=== PATIENT | male | born 1945 | race Caucasian/White ===

== ENCOUNTER 2016-07-07 15:10 | Inpatient (IN) | payer OTHER ==
[~2016-07-07] VITALS: Ht 177.8 cm; Wt 166.8 kg
[~2016-07-07 15:10] MED LIST: CARDIZEM CD PO; COUMADIN5 MG PO; COUMADIN7.5 MG PO; HUMALOG100 MG/ML SC; KLOR-CON 1010 MEQ PO; LASIX40 MG PO; LEVEMIR FL100 UNIT/M SC; LISINOPRIL10 MG PO; LOPRESSOR25 MG PO; LOPRESSOR50 MG PO; NOVOLOG PE100 UNITS/ SC; NYSTOP100000 MG TOP; SPIRONOLACTONE25 MG PO; WARFARIN SODIUM4 MG PO; ZESTRIL2.5 MG PO
--- NOTE | 2016-07-07 16:21 | DIAGNOSTIC IMAGING REPORT ---
PROCEDURE: CT HEAD WITHOUT CONTRAST INDICATION: FALL, HEAD INJURY, WARFARIN TECHNIQUE: Axial CT images were acquired through the head. Coronal and sagittal reformations were created. COMPARISON: None. FINDINGS: No intracranial hemorrhage or extraaxial fluid collections. Ventricles are normal in size, shape and position. There is no mass, mass effect or midline shift. The garcia-white matter differentiation is normal. There is no edema. The calvarium is intact. There is mucoperiosteal thickening in both maxillary sinuses. The extracranial soft tissues and orbits are normal. IMPRESSION: 1. No CT evidence of acute intracranial process. 2. Findings discussed with Isai at 04:[address] scans at this facility use dose modulation, iterative reconstruction, and/or weight-based dosing when appropriate to reduce radiation dose to as low as reasonably achievable.
--- NOTE | 2016-07-07 17:29 | ED CLINICAL REPORT ---
Clinical Report - Physicians/Mid Levels [facility] [address] [place] [address] 07/07/2016 15:11 Patient: GALINA MORRISON Time Seen: 1500; initial patient contact. Arrived- By private vehicle. Historian- patient. HISTORY OF PRESENT ILLNESS Location of injuries- head. Chief Complaint: FALL. The injury occurred today. Occurred at home. ( states he is taking a "water pill" and felt a little light headed). Fell. The patient complains of mild pain. No neck pain, loss of consciousness or seizure. Not dazed. (reports "bumping" back of head head on the ground). REVIEW OF SYSTEMS No numbness, chest pain, difficulty breathing, weakness or headache. No nausea, laceration, vomiting or urinary problems. All systems otherwise negative, except as recorded above. PAST HISTORY See nurses notes. Tetanus immunization status is up-to-date. Medications: Coumadin Oral 7.5 mg, daily (5mg on and Sundays). Docusate Sodium Oral (Capsule 250 mg) 1 capsule, bid. HumaLOG Subcutaneous (ss before meals and at HS). Human insulin (25 units BID). Lasix Oral (Tablet 40 mg), 2x a day. Lisinopril Oral 2.5 mg, daily. Metoprolol Tartrate Oral 150 mg, daily. Nystatin External (Powder 099057 unit/gm), q 8 hours. Potassium Chloride Oral (unknown dose). Senna Oral. Allergies: No Known Drug Allergy. ADDITIONAL NOTES The nursing notes have been reviewed. PHYSICAL EXAM Vital Signs: 07/07/2016 15:14 BP: 120/56. HR: 58. RR: 16. O2 saturation: 98%. Temp: 98 F. Pain level now: 2/10. Blood pressure normal. Oxygen saturation normal. Appearance: Alert. Oriented X3. No acute distress. Head: Head non-tender. No swelling of head. No Dunbar's sign or raccoon eyes. Eyes: Pupils equal, round and reactive to light. Pupillary exam: Right pupil round and reactive to light directly and consensually. Left pupil: 3mm, round and reactive to light directly and consensually and with accommodation. EOM intact. ENT: No dental injury. No hemotympanum. Pharynx normal. Neck: No decreased ROM or muscle spasm in the neck. No pain with movement of head/neck. Painless ROM. Non-tender. No vertebral tenderness. CVS: Heart sounds normal. Pulses normal. Respiratory: Breath sounds normal. Chest nontender. Abdomen: No visible injury. Soft and nontender. Bowel sounds normal. No organomegaly. Back: No tenderness. ROM normal. Skin: Skin intact. Skin warm and dry. Normal skin color. Normal skin turgor. Extremities: Pelvis stable. Extremities atraumatic. (bilateral lower extremity edema with compression stockings in placed. L > R. no tenderness.). Neuro: Eusebio Coma Scale: 15- eyes open spontaneously (4); best verbal response- oriented x 3 (5); best motor response- obeys commands (6). Oriented X 3. No motor deficit. No sensory deficit. LABS, X-RAYS, AND EKG EKG: No acute ischemia. Atrial fibrillation (narrow-complex) (63). Normal QRS complex. Normal axis. Normal ST and T waves, QT and QTc. EKG unchanged when compared with prior EKG. The study has been interpreted contemporaneously. The study has been independently viewed by me. The EKG appears to be a good tracing. CT Head: Normal study. No acute changes. No bony abnormalities. Head CT performed without contrast. The study was independently viewed by me and interpreted by the radiologist. The study was discussed with the radiologist (Via phone and pacs). Laboratory Tests: CBC w Diff: (LISY: 07/07/2016 15:39) ( MsgRcvd 07/07/2016 16:01) Final results Test Result Flag Units (Reference) WHITE BLOOD COUNT 5.6 K/uL (4.5-11.5) RED BLOOD COUNT 4.24 L M/uL (4.50-5.90) HEMOGLOBIN 12.7 L gm/dL (13.5-17.5) HEMATOCRIT 39.3 L % (41.0-53.0) MEAN CELL VOLUME 93 fL (80-100) MEAN CORPUSCULAR HGB 30 pg (26-34) MEAN CORPUSCULAR HGB CONC 32 g/dL (31-37) RED CELL DISTRIBUTION WIDTH 13.5 % (11.6-14.8) PLATELET COUNT 209 K/uL (150-400) NEUTROPHIL % 64.1 % (50-75) LYMPH % 22.8 L % (25-40) MONO % 8.8 % (3-14) EOSINOPHIL % 4.0 % (0-4) BASOPHIL % 0.3 % (0-2) PT with INR: (LISY: 07/07/2016 15:39) ( [facility] 07/07/2016 16:00) Final results Test Result Flag Units (Reference) INR 1.8 H (0.8-1.2) Low Intensity Therapy: INR 1.5-2.0 PT range 18.5-23.1Mod.Intensity Therapy: INR 2.0-3.0 PT range 23.1-31.5High Intensity Therapy: INR 2.5-3.5 PT range 27.4-35.5High Intensity Therapy 2: INR 3.0-4.0 PT range 31.5-39.3 [id number]: (LISY: 07/07/2016 17:04) ( [facility] 07/07/2016 17:20) Final results Test Result Flag Units (Reference) POTASSIUM 7.5 #*H mmol/L (3.5-5.1) CRITICAL RESULTS CALLEDCalled to DR. SMITH 07/07/16 [id number] 2 patient identifiers used? YWas the result read back? Y CMP: (LISY: 07/07/2016 15:39) ( [facility] 07/07/2016 16:39) Final results Test Result Flag Units (Reference) GLUCOSE 101 mg/dL (70-110) BUN 59 H mg/dL (7-18) CREATININE 3.4 H mg/dL (0.6-1.3) Estimated GFR 19.13 mL/min Estimated GFR- 23.18 mL/min Note: Persistent reduction over 3 months in eGFR<60 mL/min/1.73 m2 defines CKD. Patients with eGFR values>=60 mL/min/1.73 m2 may also have CKD if evidence ofpersistent proteinuria. Additional information may be foundat [email or web address].org. SODIUM 139 mmol/L (136-145) POTASSIUM 8.3 *H mmol/L (3.5-5.1) CHLORIDE 106 mmol/L (98-107) CARBON DIOXIDE 23 mmol/L (21-32) CALCIUM 8.5 mg/dL (8.5-10.1) TOTAL PROTEIN 7.2 g/dL (6.4-8.2) ALBUMIN 3.5 g/dL (3.3-5.0) BILIRUBIN, TOTAL 0.4 mg/dL (0.0-1.0) ALKALINE PHOSPHATASE 96 U/L (46-116) AST (SGOT) 21 U/L (15-37) ALT (SGPT) 24 U/L (12-78) . PROGRESS AND PROCEDURES Course of Care: the patient is a pleasant 71-year-old male presenting for evaluation of ground level fall. Because of the patient's symptoms and being on blood thinners, patient is a candidate for CT scan of the head. Patient is no neurovascular compromise at this time. Her logical exam is noted to be otherwise normal. Patient does have baseline and edema to the bilateral lower extremities with the left greater than the right. Patient's workup was significant for an elevated potassium. Appears to be a somewhat abnormal with the patient being on Lasix. Repeat potassium ordered. No other signs of hyperkalemia noted on EKG. Patient's workup was noted to be remarkable for a persistently elevated potassium. Because of the patient's creatinine and elevated potassium, caution was used in regards to patient's treatment with the hyperkalemia. Because the patient's EKG do not show any signs of hyperkalemia, conservative management at this time will be made with increasing patient's diuretics as well as albuterol treatment after having discussion with hospitalist. No further recommendations made. Patient is otherwise in no acute distress. The rest of the patient's workup was otherwise unremarkable. CT scan of the head does not show any signs of acute intracranial abnormalities. Patient is stable for telemetry. Do not the patient is admitted to the intensive care unit. Discussed with patient workup, diagnosis, plan of care. All questions have been answered. The patient expressed understanding of these instructions and was agreeable to that. Disposition: Observation in Acute Care. (Electronically signed by Alex Smith Dr. 07/09/2016 10:05)
--- NOTE | 2016-07-07 17:29 | ED CLINICAL REPORT ---
Clinical Report - Physicians/Mid Levels [facility] [address] [place] [address] 07/07/2016 15:11 Patient: GALINA MORRISON Time Seen: 1500; initial patient contact. Arrived- By private vehicle. Historian- patient. HISTORY OF PRESENT ILLNESS Location of injuries- head. Chief Complaint: FALL. The injury occurred today. Occurred at home. ( states he is taking a "water pill" and felt a little light headed). Fell. The patient complains of mild pain. No neck pain, loss of consciousness or seizure. Not dazed. (reports "bumping" back of head head on the ground). REVIEW OF SYSTEMS No numbness, chest pain, difficulty breathing, weakness or headache. No nausea, laceration, vomiting or urinary problems. All systems otherwise negative, except as recorded above. PAST HISTORY See nurses notes. Tetanus immunization status is up-to-date. Medications: Coumadin Oral 7.5 mg, daily (5mg on and Sundays). Docusate Sodium Oral (Capsule 250 mg) 1 capsule, bid. HumaLOG Subcutaneous (ss before meals and at HS). Human insulin (25 units BID). Lasix Oral (Tablet 40 mg), 2x a day. Lisinopril Oral 2.5 mg, daily. Metoprolol Tartrate Oral 150 mg, daily. Nystatin External (Powder 096320 unit/gm), q 8 hours. Potassium Chloride Oral (unknown dose). Senna Oral. Allergies: No Known Drug Allergy. ADDITIONAL NOTES The nursing notes have been reviewed. PHYSICAL EXAM Vital Signs: 07/07/2016 15:14 BP: 120/56. HR: 58. RR: 16. O2 saturation: 98%. Temp: 98 F. Pain level now: 2/10. Blood pressure normal. Oxygen saturation normal. Appearance: Alert. Oriented X3. No acute distress. Head: Head non-tender. No swelling of head. No Dunbar's sign or raccoon eyes. Eyes: Pupils equal, round and reactive to light. Pupillary exam: Right pupil round and reactive to light directly and consensually. Left pupil: 3mm, round and reactive to light directly and consensually and with accommodation. EOM intact. ENT: No dental injury. No hemotympanum. Pharynx normal. Neck: No decreased ROM or muscle spasm in the neck. No pain with movement of head/neck. Painless ROM. Non-tender. No vertebral tenderness. CVS: Heart sounds normal. Pulses normal. Respiratory: Breath sounds normal. Chest nontender. Abdomen: No visible injury. Soft and nontender. Bowel sounds normal. No organomegaly. Back: No tenderness. ROM normal. Skin: Skin intact. Skin warm and dry. Normal skin color. Normal skin turgor. Extremities: Pelvis stable. Extremities atraumatic. (bilateral lower extremity edema with compression stockings in placed. L > R. no tenderness.). Neuro: Eusebio Coma Scale: 15- eyes open spontaneously (4); best verbal response- oriented x 3 (5); best motor response- obeys commands (6). Oriented X 3. No motor deficit. No sensory deficit. LABS, X-RAYS, AND EKG EKG: No acute ischemia. Atrial fibrillation (narrow-complex) (63). Normal QRS complex. Normal axis. Normal ST and T waves, QT and QTc. EKG unchanged when compared with prior EKG. The study has been interpreted contemporaneously. The study has been independently viewed by me. The EKG appears to be a good tracing. CT Head: Normal study. No acute changes. No bony abnormalities. Head CT performed without contrast. The study was independently viewed by me and interpreted by the radiologist. The study was discussed with the radiologist (Via phone and pacs). Laboratory Tests: CBC w Diff: (LISY: 07/07/2016 15:39) ( MsgRcvd 07/07/2016 16:01) Final results Test Result Flag Units (Reference) WHITE BLOOD COUNT 5.6 K/uL (4.5-11.5) RED BLOOD COUNT 4.24 L M/uL (4.50-5.90) HEMOGLOBIN 12.7 L gm/dL (13.5-17.5) HEMATOCRIT 39.3 L % (41.0-53.0) MEAN CELL VOLUME 93 fL (80-100) MEAN CORPUSCULAR HGB 30 pg (26-34) MEAN CORPUSCULAR HGB CONC 32 g/dL (31-37) RED CELL DISTRIBUTION WIDTH 13.5 % (11.6-14.8) PLATELET COUNT 209 K/uL (150-400) NEUTROPHIL % 64.1 % (50-75) LYMPH % 22.8 L % (25-40) MONO % 8.8 % (3-14) EOSINOPHIL % 4.0 % (0-4) BASOPHIL % 0.3 % (0-2) PT with INR: (LISY: 07/07/2016 15:39) ( [facility] 07/07/2016 16:00) Final results Test Result Flag Units (Reference) INR 1.8 H (0.8-1.2) Low Intensity Therapy: INR 1.5-2.0 PT range 18.5-23.1Mod.Intensity Therapy: INR 2.0-3.0 PT range 23.1-31.5High Intensity Therapy: INR 2.5-3.5 PT range 27.4-35.5High Intensity Therapy 2: INR 3.0-4.0 PT range 31.5-39.3 [id number]: (LSIY: 07/07/2016 17:04) ( [facility] 07/07/2016 17:20) Final results Test Result Flag Units (Reference) POTASSIUM 7.5 #*H mmol/L (3.5-5.1) CRITICAL RESULTS CALLEDCalled to DR. SMITH 07/07/16 [id number] 2 patient identifiers used? YWas the result read back? Y CMP: (LISY: 07/07/2016 15:39) ( [facility] 07/07/2016 16:39) Final results Test Result Flag Units (Reference) GLUCOSE 101 mg/dL (70-110) BUN 59 H mg/dL (7-18) CREATININE 3.4 H mg/dL (0.6-1.3) Estimated GFR 19.13 mL/min Estimated GFR- 23.18 mL/min Note: Persistent reduction over 3 months in eGFR<60 mL/min/1.73 m2 defines CKD. Patients with eGFR values>=60 mL/min/1.73 m2 may also have CKD if evidence ofpersistent proteinuria. Additional information may be foundat [email or web address].org. SODIUM 139 mmol/L (136-145) POTASSIUM 8.3 *H mmol/L (3.5-5.1) CHLORIDE 106 mmol/L (98-107) CARBON DIOXIDE 23 mmol/L (21-32) CALCIUM 8.5 mg/dL (8.5-10.1) TOTAL PROTEIN 7.2 g/dL (6.4-8.2) ALBUMIN 3.5 g/dL (3.3-5.0) BILIRUBIN, TOTAL 0.4 mg/dL (0.0-1.0) ALKALINE PHOSPHATASE 96 U/L (46-116) AST (SGOT) 21 U/L (15-37) ALT (SGPT) 24 U/L (12-78) . PROGRESS AND PROCEDURES Course of Care: the patient is a pleasant 71-year-old male presenting for evaluation of ground level fall. Because of the patient's symptoms and being on blood thinners, patient is a candidate for CT scan of the head. Patient is no neurovascular compromise at this time. Her logical exam is noted to be otherwise normal. Patient does have baseline and edema to the bilateral lower extremities with the left greater than the right. Patient's workup was significant for an elevated potassium. Appears to be a somewhat abnormal with the patient being on Lasix. Repeat potassium ordered. No other signs of hyperkalemia noted on EKG. Patient's workup was noted to be remarkable for a persistently elevated potassium. Because of the patient's creatinine and elevated potassium, caution was used in regards to patient's treatment with the hyperkalemia. Because the patient's EKG do not show any signs of hyperkalemia, conservative management at this time will be made with increasing patient's diuretics as well as albuterol treatment after having discussion with hospitalist. No further recommendations made. Patient is otherwise in no acute distress. The rest of the patient's workup was otherwise unremarkable. CT scan of the head does not show any signs of acute intracranial abnormalities. Patient is stable for telemetry. Do not the patient is admitted to the intensive care unit. Discussed with patient workup, diagnosis, plan of care. All questions have been answered. The patient expressed understanding of these instructions and was agreeable to that. Disposition: Observation in Acute Care. (Electronically signed by Alex Smith Dr. 07/09/2016 10:05)
--- NOTE | 2016-07-07 17:29 | ED NURSING NOTES ---
Clinical Report - Nurses [facility] [address] [place] [address] 07/07/2016 15:11 Patient: GALINA MORRISON TRIAGE Triage time 15:10 Jul 07 2016. Acuity: LEVEL 3. Chief Complaint: FALL and (Weakness in legs). Alert. EUSEBIO COMA SCORE: Eusebio Coma Scale: 15- eyes open spontaneously (4); best verbal response- oriented x 4 (5); best motor response- obeys commands (6). --15:23 Arsen Vargas R.N. 15:14 07/07/16. BP: 120/56. HR: 58 (irregularly-irregular). RR: 16. O2 saturation: 98% on room air. Temp: 98 F. Pain level now: 10. Additional comments: (R) Elbow. --15:23 Arsen Vargas R.N. Weight: 165.5 kg stated. Height/Length: 70 inches Per Patient. BMI: 52.4. --15:17 Arsen Vargas R.N. Medications Coumadin Oral 7.5 mg, daily (5mg on and Sundays). Docusate Sodium Oral (Capsule 250 mg) 1 capsule, bid. HumaLOG Subcutaneous (ss before meals and at HS). Human insulin (25 units BID). Lasix Oral (Tablet 40 mg), 2x a day. Lisinopril Oral 2.5 mg, daily. Metoprolol Tartrate Oral 150 mg, daily. Nystatin External (Powder 824171 unit/gm), q 8 hours. Potassium Chloride Oral (unknown dose). Senna Oral. --15:19 Arsen Vargas R.N. Medication/allergy information source: the patient. --15:23 Arsen Vargas R.N. Allergies No Known Drug Allergy. --15:19 Arsen Vargas R.N. History Arrived by EMS. Historian: patient. Accompanied by family. Primary physician (Sid Virk). ( Weakness with GLF injuring his (R) Elbow). The patient has had weakness. No loss of consciousness. Treatment FINANCIAL INTERN: None. PAST MEDICAL HX: Type II diabetes mellitus treated with insulin. Heart disease with atrial fibrillation. SOCIAL HX: Never smoker. No alcohol use or drug use. No infectious disease exposure. ABUSE ASSESSMENT: No report of abuse. FALL RISK ASSESSMENT: Fall risk assessment completed. No fall risk identified. NUTRITIONAL RISK ASSESSMENT: The nutritional risk assessment revealed no deficiencies. FUNCTIONAL ASSESSMENT: Functional assessment: no impairments noted. LEARNING NEEDS ASSESSMENT: The learning needs assessment revealed no barriers. SKIN INTEGRITY ASSESSMENT: Skin integrity risk assessment completed. No skin integrity risk identified. --15:23 Arsen Vargas R.N. Interventions ID band on patient. To treatment room. --15:23 Arsen Vargas R.N. PHYSICAL ASSESSMENT To room via stretcher. GENERAL / NEURO / PSYCH: Alert. Oriented X 4. HEENT: Head non-tender. RESPIRATORY: Respirations not labored. CVS: Pulses within normal limits. ( Has had Cellulitis in Bilat legs). GI / : Abdomen soft. EXTREMITIES: Neuro-vascular status intact to the extremity. SKIN: Skin intact. ( Bilateral swelling of the lower legs). --15:26 Arsen Vargas R.N. CVS: Cardiac rhythm: atrial fibrillation. --15:26 Arsen Vargas R.N. NURSING PROGRESS NOTES Reassurance given. Patient identifiers checked. Call light placed in reach. Side rails up x 1. Bed placed in lowest position. Brakes of bed on. Patient ready for evaluation- chart flagged and ED physician notified. --15:27 Asren Vargas R.N. EKG was ordered, performed by a tech and shown to the ED physician. --15:42 Lucille Bailon ER Tech1 15:33 07/07/2016 Site #1 started via IV in the left hand with an 22g angiocath, with aseptic technique and good blood return; one attempt. Blood drawn: rainbow set. Labeled in the presence of the patient and sent to the lab. Saline lock flushed with 10 mL saline. --15:43 Arsen Vargas R.N. 15:44 07/07/2016 Started bag #1 1000 mL IV Fluids IV NS (Saline); at 1000 mL/hr over 30 minute(s) via site #1 via IV pump. Allergies verified and confirmed 5 rights. IV patency established. IV site checked: no pain, redness, or swelling. IV flushed thoroughly pre- and post-medication administration. --15:44 Arsen Vargas R.N. 15:33. ( IV start by Chelle Grande RN Blood drawn). --15:46 Arsen Vargas R.N. 15:35. ( Blood Sugar--109). --15:47 Arsen Vargas R.N. 16:40 07/07/16. ( Pt insisted on ambulating to the bathroom to urinate. He was able to get out of bed and using his walker, ambulate to the bathroom. He was advised that we would lprefer that he use the BSC--but he insisted....). --16:44 Arsen Vargas R.N. 17:00 07/07/16. Critical value relayed to ED by laborer laboratory Gregory. Critical value received by Arsen Stuart RN. K: 8.3. Critical value read back. ED physician notifed of critical value. Orders were received. No action is required. ( Back to bad from bathroom). --17:01 Arsen Vargas R.N. ( H/P forms on chart.). --17:29 Sandra Seaman 18:00 07/07/16. BP: 96/63. HR: 68. RR: 16. O2 saturation: 98%. --18:25 Arsen Vargas R.N. ( overview faxed to 2nd floor.). --18:51 Lucille Bailon, Tech1 18:58 07/07/2016 Albuterol Neb TX Nebulizer 1 unit dose given. Given by the respiratory therapist. Allergies verified and confirmed 5 rights. --18:58 Saniya Watson 19:35 07/07/16. Critical value relayed to ED by Lab. Critical value received by Jose Antonio Moreno RN. K: 7.6. ED physician and charge nurse notifed of critical value. --19:35 Jose Antonio Moreno R.N. 19:36 07/07/16. ( Primary RN aware as well of critical K). --19:36 Jose Antonio Moreno R.N. 19:52 07/07/2016 Lasix IVP 20 mg given over 2 minute(s) via site #1. Allergies verified and confirmed 5 rights. IV patency established. IV site checked: no pain, redness, or swelling. IV flushed thoroughly pre- and post-medication administration. IVP given by RN. --20:02 Arsen Vargas R.N. 19:00 07/07/16. BP: 114/72. HR: 68. RR: 16. O2 saturation: 97% on room air. Pain level now: 06/04. --21:20 Arsen Vargas R.N. 16:15 07/07/2016 IV Fluids IV NS Discontinued: bag #1 discontinued upon admission. Total amount infused: 500 mL. IV patency established. IV site checked: no pain, redness, or swelling. IV flushed thoroughly. --21:21 Arsen Vargas R.N. 20:15 07/07/2016 Site #[address] upon admission; patent, no pain and no signs of infection or infiltration. Good blood return present. Flushed with saline; flushes easily. --21:24 Arsen Vargas R.N. DISPOSITION / DISCHARGE 20:00 07/07/16. BP: 94/56. HR: 88. RR: 18. O2 saturation: 97% on room air. Temp: 97.6 F (oral). Pain level now: 06/04. --21:14 Arsen Vargas R.N. Departure time: 2014. --21:15 Arsen Vargas R.N. 20:15. Admitted to Acute Care. Transported via stretcher by nurse with IV. Report was given. Bed obtained. Patient's personal items; items were placed in belongings bag and transported with the patient. --21:16 Arsen Vargas R.N. Locked/Released at 07/07/2016 21:26 by Arsen Vargas R.N.
--- NOTE | 2016-07-07 17:29 | ED ORDER SUMMARY ---
..... Patient: GALINA MORRISON OrderSheet [facility] VisitID: [id number] [place] [address] 71y, M Registration Date/Time: 07/07/2016 ORDER SHEET Weight: 165.5 kg (stated) Allergies: No Known Drug Allergy GENERAL ORDERS: CT Head wo Cont Urgent (15:15 07/07/2016 Sarah Marques) (Ack 15:17 Yesika) (17:18 MCampbell) CBC w Diff Urgent (15:16 07/07/2016 Sarah Marques) (Ack 15:17 Yesika) (15:27 Kevin R.N.) CMP Urgent (15:16 07/07/2016 Sarah Marques) (Ack 15:17 Josener) (15:27 Kevin R.N.) PT with INR Urgent (15:16 07/07/2016 Sarah Marques) (Ack 15:17 Josener) (15:44 Kevin R.N.) Pulse oximeter (15:16 07/07/2016 Sarah Marques) (Ack 15:17 Josener) (15:27 Kevin R.N.) EKG - ER Stat (15:16 07/07/2016 Sarah Marques) (Ack 15:17 Yesika) (15:32 RICARDOoerner) Potassium Urgent (16:59 07/07/2016 Sarah Marques) (Ack 17:06 Josener) (18:27 Kevin R.N.) MEDICATION ORDERS: Albuterol Neb Tx 10 mg (once now for hyper K) (18:29 07/07/2016 Sarah Marques) (18:58 HSoule) IV FLUIDS: IV NS : initial bolus 500 mL (1000 mL/hr), then none - for X1 (NOW) (15:15 07/07/2016 Sarah Marques) (15:44 Kevin R.N.) Lasix IV 20 mg (NOW) (17:27 07/07/2016 Sarah Marques) (Hold 18:58 HSoule) (20:02 JRomanelli R.N.) ORDER SHEET NOTES: [Electronically signed by Arsen Vargas R.N. (07/07/2016)] [Electronically signed by Alex Alex Dr. (10:05 07/09/2016)] [Electronically locked/signed by Arsen Vargas R.N. (07/07/2016)]
--- NOTE | 2016-07-07 17:29 | ED NURSING NOTES ---
Clinical Report - Nurses [facility] [address] [place] [address] 07/07/2016 15:11 Patient: GALINA MORRISON TRIAGE Triage time 15:10 Jul 07 2016. Acuity: LEVEL 3. Chief Complaint: FALL and (Weakness in legs). Alert. EUSEBIO COMA SCORE: Eusebio Coma Scale: 15- eyes open spontaneously (4); best verbal response- oriented x 4 (5); best motor response- obeys commands (6). --15:23 Arsen Vargas R.N. 15:14 07/07/16. BP: 120/56. HR: 58 (irregularly-irregular). RR: 16. O2 saturation: 98% on room air. Temp: 98 F. Pain level now: 10. Additional comments: (R) Elbow. --15:23 Arsen Vargas R.N. Weight: 165.5 kg stated. Height/Length: 70 inches Per Patient. BMI: 52.4. --15:17 Arsen Vargas R.N. Medications Coumadin Oral 7.5 mg, daily (5mg on and Sundays). Docusate Sodium Oral (Capsule 250 mg) 1 capsule, bid. HumaLOG Subcutaneous (ss before meals and at HS). Human insulin (25 units BID). Lasix Oral (Tablet 40 mg), 2x a day. Lisinopril Oral 2.5 mg, daily. Metoprolol Tartrate Oral 150 mg, daily. Nystatin External (Powder 323647 unit/gm), q 8 hours. Potassium Chloride Oral (unknown dose). Senna Oral. --15:19 Arsen Vargas R.N. Medication/allergy information source: the patient. --15:23 Arsen Vargas R.N. Allergies No Known Drug Allergy. --15:19 Arsen Vargas R.N. History Arrived by EMS. Historian: patient. Accompanied by family. Primary physician (Sid Virk). ( Weakness with GLF injuring his (R) Elbow). The patient has had weakness. No loss of consciousness. Treatment DAY WORKER: None. PAST MEDICAL HX: Type II diabetes mellitus treated with insulin. Heart disease with atrial fibrillation. SOCIAL HX: Never smoker. No alcohol use or drug use. No infectious disease exposure. ABUSE ASSESSMENT: No report of abuse. FALL RISK ASSESSMENT: Fall risk assessment completed. No fall risk identified. NUTRITIONAL RISK ASSESSMENT: The nutritional risk assessment revealed no deficiencies. FUNCTIONAL ASSESSMENT: Functional assessment: no impairments noted. LEARNING NEEDS ASSESSMENT: The learning needs assessment revealed no barriers. SKIN INTEGRITY ASSESSMENT: Skin integrity risk assessment completed. No skin integrity risk identified. --15:23 Arsen Vargas R.N. Interventions ID band on patient. To treatment room. --15:23 Arsen Vargas R.N. PHYSICAL ASSESSMENT To room via stretcher. GENERAL / NEURO / PSYCH: Alert. Oriented X 4. HEENT: Head non-tender. RESPIRATORY: Respirations not labored. CVS: Pulses within normal limits. ( Has had Cellulitis in Bilat legs). GI / : Abdomen soft. EXTREMITIES: Neuro-vascular status intact to the extremity. SKIN: Skin intact. ( Bilateral swelling of the lower legs). --15:26 Arsen Vargas R.N. CVS: Cardiac rhythm: atrial fibrillation. --15:26 Arsen Vargas R.N. NURSING PROGRESS NOTES Reassurance given. Patient identifiers checked. Call light placed in reach. Side rails up x 1. Bed placed in lowest position. Brakes of bed on. Patient ready for evaluation- chart flagged and ED physician notified. --15:27 Arsen Vargas R.N. EKG was ordered, performed by a tech and shown to the ED physician. --15:42 Lucille Bailon ER Tech1 15:33 07/07/2016 Site #1 started via IV in the left hand with an 22g angiocath, with aseptic technique and good blood return; one attempt. Blood drawn: rainbow set. Labeled in the presence of the patient and sent to the lab. Saline lock flushed with 10 mL saline. --15:43 Arsen Vargas R.N. 15:44 07/07/2016 Started bag #1 1000 mL IV Fluids IV NS (Saline); at 1000 mL/hr over 30 minute(s) via site #1 via IV pump. Allergies verified and confirmed 5 rights. IV patency established. IV site checked: no pain, redness, or swelling. IV flushed thoroughly pre- and post-medication administration. --15:44 Arsen Vargas R.N. 15:33. ( IV start by Chelle Grande RN Blood drawn). --15:46 Arsen Vargas R.N. 15:35. ( Blood Sugar--109). --15:47 Arsen Vargas R.N. 16:40 07/07/16. ( Pt insisted on ambulating to the bathroom to urinate. He was able to get out of bed and using his walker, ambulate to the bathroom. He was advised that we would lprefer that he use the BSC--but he insisted....). --16:44 Arsen Vargas R.N. 17:00 07/07/16. Critical value relayed to ED by car barn laborer Gregory. Critical value received by Arsen Stuart RN. K: 8.3. Critical value read back. ED physician notifed of critical value. Orders were received. No action is required. ( Back to bad from bathroom). --17:01 Arsen Vargas R.N. ( H/P forms on chart.). --17:29 Sandra Seaman 18:00 07/07/16. BP: 96/63. HR: 68. RR: 16. O2 saturation: 98%. --18:25 Arsen Vargas R.N. ( overview faxed to 2nd floor.). --18:51 Lucille Bailon, Tech1 18:58 07/07/2016 Albuterol Neb TX Nebulizer 1 unit dose given. Given by the respiratory therapist. Allergies verified and confirmed 5 rights. --18:58 Saniya Watson 19:35 07/07/16. Critical value relayed to ED by Lab. Critical value received by Jose Antonio Moreno RN. K: 7.6. ED physician and charge nurse notifed of critical value. --19:35 Jose Antonio Moreno R.N. 19:36 07/07/16. ( Primary RN aware as well of critical K). --19:36 Jose Antonio Moreno R.N. 19:52 07/07/2016 Lasix IVP 20 mg given over 2 minute(s) via site #1. Allergies verified and confirmed 5 rights. IV patency established. IV site checked: no pain, redness, or swelling. IV flushed thoroughly pre- and post-medication administration. IVP given by RN. --20:02 Arsen Vargas R.N. 19:00 07/07/16. BP: 114/72. HR: 68. RR: 16. O2 saturation: 97% on room air. Pain level now: 06/04. --21:20 Arsen Vargas R.N. 16:15 07/07/2016 IV Fluids IV NS Discontinued: bag #1 discontinued upon admission. Total amount infused: 500 mL. IV patency established. IV site checked: no pain, redness, or swelling. IV flushed thoroughly. --21:21 Arsen Vargas R.N. 20:15 07/07/2016 Site #[address] upon admission; patent, no pain and no signs of infection or infiltration. Good blood return present. Flushed with saline; flushes easily. --21:24 Arsen Vargas R.N. DISPOSITION / DISCHARGE 20:00 07/07/16. BP: 94/56. HR: 88. RR: 18. O2 saturation: 97% on room air. Temp: 97.6 F (oral). Pain level now: 06/04. --21:14 Arsen Vargas R.N. Departure time: 2014. --21:15 Arsen Vargas R.N. 20:15. Admitted to Acute Care. Transported via stretcher by nurse with IV. Report was given. Bed obtained. Patient's personal items; items were placed in belongings bag and transported with the patient. --21:16 Arsen Vargas R.N. Locked/Released at 07/07/2016 21:26 by Arsen Vargas R.N.
--- NOTE | 2016-07-07 17:29 | ED ORDER SUMMARY ---
..... Patient: GALINA MORRISON OrderSheet [facility] VisitID: [id number] [place] [address] 71y, M Registration Date/Time: 07/07/2016 ORDER SHEET Weight: 165.5 kg (stated) Allergies: No Known Drug Allergy GENERAL ORDERS: CT Head wo Cont Urgent (15:15 07/07/2016 Sarah Marques) (Ack 15:17 Yesika) (17:18 MCampbell) CBC w Diff Urgent (15:16 07/07/2016 Sarah Marques) (Ack 15:17 Yesika) (15:27 Kevin R.N.) CMP Urgent (15:16 07/07/2016 Sarah Marques) (Ack 15:17 Josener) (15:27 Kevin R.N.) PT with INR Urgent (15:16 07/07/2016 Sarah Marques) (Ack 15:17 Josener) (15:44 Kevin R.N.) Pulse oximeter (15:16 07/07/2016 Sarah Marques) (Ack 15:17 Josener) (15:27 Kevin R.N.) EKG - ER Stat (15:16 07/07/2016 Sarah Marques) (Ack 15:17 Yesika) (15:32 RICARDOoerner) Potassium Urgent (16:59 07/07/2016 Sarah Marques) (Ack 17:06 Josener) (18:27 Kevin R.N.) MEDICATION ORDERS: Albuterol Neb Tx 10 mg (once now for hyper K) (18:29 07/07/2016 Sarah Marques) (18:58 HSoule) IV FLUIDS: IV NS : initial bolus 500 mL (1000 mL/hr), then none - for X1 (NOW) (15:15 07/07/2016 Sarah Marques) (15:44 Kevin R.N.) Lasix IV 20 mg (NOW) (17:27 07/07/2016 Sarah Marques) (Hold 18:58 HSoule) (20:02 JRomanelli R.N.) ORDER SHEET NOTES: [Electronically signed by Arsen Vargas R.N. (07/07/2016)] [Electronically signed by Alex Alex Dr. (10:05 07/09/2016)] [Electronically locked/signed by Arsen Vargas R.N. (07/07/2016)]
--- NOTE | 2016-07-07 18:54 | Progress Note ---
Subjective General 71 y.o male with afib that had a ground level fall who is being admitted for hyperkalemia noted on bmp with sig elevation. Treated in ER with albuterol. lasix. Full code. Physical Exam LAB Results Laboratory Tests 07/07 07/07 1704 1539 Chemistry Plasma Sodium (136 - 145 mmol/L) 139 Plasma Potassium (3.5 - 5.1 mmol/L) 7.5 8.3 Plasma Chloride (98 - 107 mmol/L) 106 CO2 (Enzymatic) (21 - 32 mmol/L) 23 BUN (7 - 18 mg/dL) 59 Creatinine (0.6 - 1.3 mg/dL) 3.4 3.4 Est GFR ( Amer) (mL/min) 23.18 Est GFR (Non-Af Amer) (mL/min) 19.13 Glucose (70 - 110 mg/dL) 101 Plasma Calcium (8.5 - 10.1 mg/dL) 8.5 Total Bilirubin (0.0 - 1.0 mg/dL) 0.4 AST (15 - 37 U/L) 21 ALT (12 - 78 U/L) 24 Alkaline Phosphatase (46 - 116 U/L) 96 Total Protein (6.4 - 8.2 g/dL) 7.2 Albumin (3.3 - 5.0 g/dL) 3.5 Coagulation INR (0.8 - 1.2) 1.8 Hematology WBC (4.5 - 11.5 K/uL) 5.6 RBC (4.50 - 5.90 M/uL) 4.24 Hgb (13.5 - 17.5 gm/dL) 12.7 Hct (41.0 - 53.0 %) 39.3 MCV (80 - 100 fL) 93 MCH (26 - 34 pg) 30 RDW (11.6 - 14.8 %) 13.5 Neut % (Auto) (50 - 75 %) 64.1 Lymph % (Auto) (25 - 40 %) 22.8 [place] % (Auto) (3 - 14 %) 8.8 Eos % (Auto) (0 - 4 %) 4.0 Baso % (Auto) (0 - 2 %) 0.3 Plt Count, EDTA (150 - 400 K/uL) 209 PUBS MCHC (31 - 37 g/dL) 32
[2016-07-07 20:10] VITALS: BP 121/61
--- NOTE | 2016-07-07 20:14 | HISTORY AND PHYSICAL ---
ADMITTED: 07/07/2016 CHIEF COMPLAINT: 1. Ground level fall HISTORY OF PRESENT ILLNESS: The patient was at home. When he was standing up, had gotten up to go to the bathroom and he fell down onto his knees as for his legs just felt weak and went out on him. He tried to catch himself, landed a little bit on his right elbow and he was brought in to the emergency department for further evaluation. On his evaluation he had a negative workup except for he was found to have some significant laboratory abnormalities, in particular, hyperkalemia, and patient is being admitted for hyperkalemia. MEDICAL/SURGICAL HISTORY: Past medical history: He has had atrial fibrillation, diabetes, renal insufficiency, morbid obesity, Coumadin therapy for the atrial fibrillation and he has had hypokalemia in the past. Past surgical history: Cataract surgery, retinal surgery. He had a colonoscopy about 3-4 years ago at [facility]. MEDICATIONS: 1. Furosemide 80 mg p.o. daily. 2. Spironolactone 25 mg p.o. b.i.d. 3. Acetaminophen 325 mg 1-2 q.4 hours p.r.n. pain. 4. Warfarin 7.5 mg 1 p.o. daily. 5. Loperamide 2 mg 1 capsule q.4 hours p.r.n. loose stools. 6. Lisinopril 10 mg p.o. daily. 7. Multivitamin 1 p.o. daily. 8. Nystop powder uses for affected areas in groin and penis. 9. Milk of Magnesia 30 mL one p.o. daily as needed for constipation. 10. Bisac-Evac 10 mg suppository rectally q.4 days as needed for constipation. 11. Enemas as well p.r.n. for constipation. 12. NovoLog FlexPen that he uses with a sliding scale. 13. Lantus 33 units subcutaneous daily. 14. Metoprolol 100 mg 1 tablet p.o. b.i.d. 15. Diltiazem XR 120 mg capsule at bedtime. ALLERGIES: 1. SOCIAL HISTORY: He is single. [employer]regation. cooking teacher, retired. He lives at [facility]. He does not smoke and never has, and is not a drinker or drug abuser. FAMILY HISTORY: His mother at age 86 of heart disease and rheumatic fever. Father at age 55 of emphysema lung disease. REVIEW OF SYSTEMS: He has had some weakness. He states that has been going on over the last number of months, probably 2 months. He has a little bit of swelling on his right foot. He has got lots of swelling on his legs bilaterally, left leg more than his right. He had a history of sores and edema and significant hospitalization for this with cellulitis in the past, a number of months ago, and currently is no longer having any active sores. PHYSICAL EXAMINATION: GENERAL: He is an alert male who is talkative, appears in no apparent distress. VITAL SIGNS: Blood pressure 120/56, heart rate of 58, respirations 16, saturating 98% on room air. His temperature is 98 Fahrenheit. HEENT: Extraocular movements intact. Pupils equal, round, reactive to light. Oropharynx is clear with moist mucous membranes. NECK: Supple without lymphadenopathy. LUNGS: Clear to auscultation bilaterally. HEART: Irregularly irregular and nonfocal and no murmurs. ABDOMEN: Severely obese, very large pannus and odor of yeast. MUSCULOSKELETAL: He has got significant edema, left greater than the right, but some swelling on right. He is using hose on both sides. PSYCHIATRIC: He is alert and oriented and he is cooperative on today's examination. LAB/IMAGING: Laboratories: CBC with diff: White count of 5.6, hematocrit 39.3, and platelets of 209,000. INR of 1.8. Comprehensive metabolic panel: Glucose 101, BUN of 59, creatinine of 3.4, sodium 139, potassium 8.3, chloride of 106, carbon dioxide 23, calcium 8.5, total protein 7.2. Repeat creatinine 3.4 and potassium 7.5 on laboratories 1 hour later. Albumin 3.5, total bili 0.4, alk phos 96, AST of 21, ALT of 24. CXR: enlarged heart no acute process EKG: has irregularly irregular HR c/w afib no acute changes. IMPRESSION: 1. Hyperkalemia- severe treat with albuterol, kayexelate. 2. Chronic renal insufficiency, now, in more renal failure, likely related to dehydration due to diuretics and his lisinopril and his spironolactone. 3. He has got some very large lymphedema as well. Currently, he has got no active sores with that. 4. He has got his severe obesity and his skin fold issues with yeast infections. PLAN: To admit him to the hospital, treat with nystatin, treat with his home medications minus spironolactone, lisinopril and Lasix. We will hydrate him and repeat on his potassium laboratories. Also we will treat with albuterol currently and watch his potassium; however, if this responds consider calcium, insulin and glucose treatment, as well as indicated. Telemetry protocol. CODE STATUS: FULL CODE.
[2016-07-07 23:37] VITALS: BP 93/56
[2016-07-07 23:58] VITALS: BP 119/68
[2016-07-08 03:59] VITALS: BP 95/61
[2016-07-08 06:45] VITALS: BP 120/88
--- NOTE | 2016-07-08 07:27 | Progress Note ---
Subjective General 71 year old male admitted with hyperkalemia, afib, large leg swelling, HTN who had a ground level fall and then found in ER to have very high K. Is now post treatment with kayexalate and is also off his spironolactone and lisinopril. Hx of low K in past on lasix. States he didn't sleep well at all but other than that is doing ok. No cp, sob. Physical Exam Vital Signs / I&Os Vital Signs Date Time Temp Pulse Resp B/P Pulse O2 O2 Flow FiO2 Ox Delivery Rate 07/08 0645 97.9 113 22 120/88 99 Room Air 07/08 0359 97.5 110 22 95/61 97 Room Air 07/07 2358 119/68 07/07 2337 97.5 82 22 93/56 97 Room Air 07/07 2009 97.9 109 20 121/61 100 Room Air I&O 07/08 0000 07/07 1600 07/07 0800 Intake Total 0 Output Total 785 Balance -785 General Appearance Alert, Cooperative HEENT Normal exam Lungs Clear to auscultation, Normal air movement Cardiovascular irregularly irregular HR Abdomen Soft, obese non tender Extremities massive edema on L and less on right. LAB Results Laboratory Tests 07/08 07/07 07/07 07/07 0525 1912 1704 1539 Chemistry Plasma Sodium (136 - 145 mmol/L) 140 137 139 Plasma Potassium (3.5 - 5.1 mmol/L) 6.6 7.6 7.5 8.3 Plasma Chloride (98 - 107 mmol/L) 106 107 106 CO2 (Enzymatic) (21 - 32 mmol/L) 24 22 23 BUN (7 - 18 mg/dL) 62 60 59 Creatinine (0.6 - 1.3 mg/dL) 3.2 3.4 3.4 3.4 Est GFR ( Amer) (mL/min) 24.86 23.18 23.18 Est GFR (Non-Af Amer) (mL/min) 20.51 19.13 19.13 Glucose (70 - 110 mg/dL) 90 95 101 Plasma Calcium (8.5 - 10.1 mg/dL) 8.3 8.6 8.5 Total Bilirubin (0.0 - 1.0 mg/dL) 0.4 AST (15 - 37 U/L) 21 ALT (12 - 78 U/L) 24 Alkaline Phosphatase (46 - 116 U/L) 96 Total Protein (6.4 - 8.2 g/dL) 7.2 Albumin (3.3 - 5.0 g/dL) 3.5 Coagulation INR (0.8 - 1.2) 1.8 Hematology WBC (4.5 - 11.5 K/uL) 5.6 RBC (4.50 - 5.90 M/uL) 4.24 Hgb (13.5 - 17.5 gm/dL) 12.7 Hct (41.0 - 53.0 %) 39.3 MCV (80 - 100 fL) 93 MCH (26 - 34 pg) 30 RDW (11.6 - 14.8 %) 13.5 Neut % (Auto) (50 - 75 %) 64.1 Lymph % (Auto) (25 - 40 %) 22.8 [place] % (Auto) (3 - 14 %) 8.8 Eos % (Auto) (0 - 4 %) 4.0 Baso % (Auto) (0 - 2 %) 0.3 Plt Count, EDTA (150 - 400 K/uL) 209 PUBS MCHC (31 - 37 g/dL) 32 Assessment and Plan Problem List 1. Atrial fibrillation Plan Increase on beta alphonse as I will try to get off of Ca channel alphonse with his massive edema. 2. Chronic anticoagulation Status Chronic Onset Date Unknown Plan Continue on coumadin 3. Renal insufficiency Plan stable 4. Diabetes mellitus Status Chronic Onset Date Unknown Plan check on a1c 5. Hyperkalemia Plan improving and will monitor labs off of K holding meds.
[2016-07-08 10:28] VITALS: BP 108/54
[2016-07-08 14:25] VITALS: BP 103/69
[2016-07-08 18:31] VITALS: BP 124/58
[2016-07-08 22:17] VITALS: BP 121/50
[2016-07-09 01:32] VITALS: BP 100/49
--- NOTE | 2016-07-09 07:47 | Progress Note ---
Subjective General 71 y.o male with afib and edema who presented with hyper kalemia and dehydration. Feels a little better no. No acute issues. No cp,sob. Physical Exam Vital Signs / I&Os Vital Signs Date Time Temp Pulse Resp B/P Pulse O2 O2 Flow FiO2 Ox Delivery Rate 07/09 0132 97.7 90 18 100/49 98 Room Air 07/08 2217 98.4 87 16 121/50 100 Room Air 07/08 2000 Room Air 07/08 1831 97.5 114 20 124/58 100 Room Air 07/08 1425 97.3 110 20 103/69 100 Room Air 07/08 1028 98.2 123 21 108/54 99 Room Air I&O 07/09 0000 07/08 1600 07/08 0800 Intake Total 6674 180 0390 Output Total 1400 425 Balance 224 297 7871 General Appearance Alert, Oriented X3, Cooperative Lungs coarse BS non focal. Cardiovascular irregular HR non focal Abdomen severely obese Extremities massive L leg edema, some on right. LAB Results Laboratory Tests 07/09 07/08 07/08 0545 1320 0850 Chemistry Plasma Sodium (136 - 145 mmol/L) 141 138 Plasma Potassium (3.5 - 5.1 mmol/L) 5.6 6.3 Plasma Chloride (98 - 107 mmol/L) 108 106 CO2 (Enzymatic) (21 - 32 mmol/L) 25 19 BUN (7 - 18 mg/dL) 59 61 Creatinine (0.6 - 1.3 mg/dL) 2.9 3.1 Est GFR ( Amer) (mL/min) 27.85 25.79 Est GFR (Non-Af Amer) (mL/min) 22.98 21.28 Glucose (70 - 110 mg/dL) 82 126 Plasma Calcium (8.5 - 10.1 mg/dL) 8.1 8.6 Coagulation INR (0.8 - 1.2) 1.9 2.0 Assessment and Plan Problem List 1. Atrial fibrillation Plan Is on coumadin and stable. HR ok on higher beta alphonse, no longer Ca Ch alphonse. 2. Morbid obesity Status Chronic Onset Date Unknown 3. Diabetes mellitus Status Chronic Onset Date Unknown Plan Stable. 4. Renal insufficiency Plan Is a little less dehydrated with cr a little better.
--- NOTE | 2016-07-09 07:47 | Progress Note ---
Subjective General 71 y.o male with afib and edema who presented with hyper kalemia and dehydration. Feels a little better no. No acute issues. No cp,sob. Physical Exam Vital Signs / I&Os Vital Signs Date Time Temp Pulse Resp B/P Pulse O2 O2 Flow FiO2 Ox Delivery Rate 07/09 0132 97.7 90 18 100/49 98 Room Air 07/08 2217 98.4 87 16 121/50 100 Room Air 07/08 2000 Room Air 07/08 1831 97.5 114 20 124/58 100 Room Air 07/08 1425 97.3 110 20 103/69 100 Room Air 07/08 1028 98.2 123 21 108/54 99 Room Air I&O 07/09 0000 07/08 1600 07/08 0800 Intake Total 7765 134 0618 Output Total 1400 425 Balance 912 594 6611 General Appearance Alert, Oriented X3, Cooperative Lungs coarse BS non focal. Cardiovascular irregular HR non focal Abdomen severely obese Extremities massive L leg edema, some on right. LAB Results Laboratory Tests 07/09 07/08 07/08 0545 1320 0850 Chemistry Plasma Sodium (136 - 145 mmol/L) 141 138 Plasma Potassium (3.5 - 5.1 mmol/L) 5.6 6.3 Plasma Chloride (98 - 107 mmol/L) 108 106 CO2 (Enzymatic) (21 - 32 mmol/L) 25 19 BUN (7 - 18 mg/dL) 59 61 Creatinine (0.6 - 1.3 mg/dL) 2.9 3.1 Est GFR ( Amer) (mL/min) 27.85 25.79 Est GFR (Non-Af Amer) (mL/min) 22.98 21.28 Glucose (70 - 110 mg/dL) 82 126 Plasma Calcium (8.5 - 10.1 mg/dL) 8.1 8.6 Coagulation INR (0.8 - 1.2) 1.9 2.0 Assessment and Plan Problem List 1. Atrial fibrillation Plan Is on coumadin and stable. HR ok on higher beta alphonse, no longer Ca Ch alphonse. 2. Morbid obesity Status Chronic Onset Date Unknown 3. Diabetes mellitus Status Chronic Onset Date Unknown Plan Stable. 4. Renal insufficiency Plan Is a little less dehydrated with cr a little better.
[2016-07-09] MEDS ORDERED: LOPRESSOR25 MG PO (07:51)
--- NOTE | 2016-07-09 07:54 | Provider's Discharge Care Plan ---
Problem, Goal, Plan Problem List 1. Atrial fibrillation Instructions: Follow up as directed, continue meds as listed 2. Renal insufficiency Instructions: check labs in f/u 3. Hyperkalemia Instructions: check labs in f/u will see about ? add on more chf meds as tolerates
[2016-07-09 09:17] VITALS: BP 133/51
--- NOTE | 2016-07-09 10:05 | ED MED RECONCILIATION SUMMARY ---
Patient: GALINA MORRISON Medication Reconciliation Report [facility] VisitID: [id number] [address] [place] [address] 71y, M Registration Date/Time: 07/07/2016 Weight: 165.5 kg Height/Length: 70 in. BMI: 52.4 ALLERGIES: No Known Drug Allergy The patient's Home Medications are listed below: THE FOLLOWING MEDICATIONS NEED TO BE RECONCILED: Coumadin Oral 7.5 mg, daily, 5mg on and Sundays Coumadin Oral 7.5 mg, daily Dilt-XR Oral (120 mg) 1 capsule, at bedtime Docusate Sodium Oral (250 mg) 1 capsule, bid HumaLOG Subcutaneous, ss before meals and at HS Human insulin, 25 units BID Lasix Oral (40 mg), 2x a day Lisinopril Oral 2.5 mg, daily Metoprolol Tartrate Oral 100 mg, 2 x daily Milk of Magnesia Oral 30 ml NovoLOG Subcutaneous NovoLOG Subcutaneous Nystatin External (519694 unit/gm), q 8 hours Potassium Chloride Oral, unknown dose Senna Oral The source(s) of the original Home Medication information: patient The following Medications were given to the patient in the Emergency Department: IV NS IV Fluids bolus 0, then 1000 mL/hr, administered: 07/07/2016 3:44:00 PM Albuterol [Neb Tx] Neb TX 1 unit dose, administered: 07/07/2016 6:58:00 PM Lasix [IVP] IVP 20 mg, administered: 07/07/2016 7:52:00 PM The following Medications were prescribed to the patient: None.
--- NOTE | 2016-07-09 10:05 | ED MAR SUMMARY ---
..... Medication Administration Record [facility] [address] [place] [address] Patient: GALINA MORRISON Visit ID: [id number] 71y, M Weight: 165.5 kg Height/Length: 70 in BMI: 52.4 ALLERGIES: No Known Drug Allergy Start 15:44 07/07/2016 Arsen Vargas R.NFredi, Stop 16:15 07/07/2016 Arsen Vargas R.N. Medication Administered: IV NS (SALINE), Dose: IV Fluids over 30 minute(s), Rate: 1000 mL/hr, Dispensed: 1000 mL bag, Site: #1 left hand. Medication Ordered: IV NS : initial bolus 500 mL (1000 mL/hr), then none - for X1 (NOW). Given 18:58 07/07/2016 Saniya Watson, Medication Administered: ALBUTEROL [NEB TX], Dose: 1 unit dose Nebulizer Neb TX. Medication Ordered: Albuterol Neb Tx 10 mg (once now for hyper K). Given 19:52 07/07/2016 Arsen Vargas RFrediNFredi Medication Administered: LASIX [IVP], Dose: 20 mg IVP over 2 minute(s), Site: #1 left hand. Medication Ordered: Lasix IV 20 mg (NOW).
--- NOTE | 2016-07-09 10:05 | ED MAR SUMMARY ---
..... Medication Administration Record Merged With [facility] [address] [place] [address] Patient: GALINA MORRISON Visit ID: [id number] 71y, M Weight: 165.5 kg Height/Length: 70 in BMI: 52.4 ALLERGIES: No Known Drug Allergy Start 15:44 07/07/2016 Arsen Vargas R.NFredi, Stop 16:15 07/07/2016 Arsne Vargas R.N. Medication Administered: IV NS (SALINE), Dose: IV Fluids over 30 minute(s), Rate: 1000 mL/hr, Dispensed: 1000 mL bag, Site: #1 left hand. Medication Ordered: IV NS : initial bolus 500 mL (1000 mL/hr), then none - for X1 (NOW). Given 18:58 07/07/2016 Saniya Watson, Medication Administered: ALBUTEROL [NEB TX], Dose: 1 unit dose Nebulizer Neb TX. Medication Ordered: Albuterol Neb Tx 10 mg (once now for hyper K). Given 19:52 07/07/2016 Arsen Vargas RFrediNFredi Medication Administered: LASIX [IVP], Dose: 20 mg IVP over 2 minute(s), Site: #1 left hand. Medication Ordered: Lasix IV 20 mg (NOW).
--- NOTE | 2016-07-09 10:05 | ED MED RECONCILIATION SUMMARY ---
Patient: GALINA MORRISON Medication Reconciliation Report [facility] VisitID: [id number] [address] [place] [address] 71y, M Registration Date/Time: 07/07/2016 Weight: 165.5 kg Height/Length: 70 in. BMI: 52.4 ALLERGIES: No Known Drug Allergy The patient's Home Medications are listed below: THE FOLLOWING MEDICATIONS NEED TO BE RECONCILED: Coumadin Oral 7.5 mg, daily, 5mg on and Sundays Coumadin Oral 7.5 mg, daily Dilt-XR Oral (120 mg) 1 capsule, at bedtime Docusate Sodium Oral (250 mg) 1 capsule, bid HumaLOG Subcutaneous, ss before meals and at HS Human insulin, 25 units BID Lasix Oral (40 mg), 2x a day Lisinopril Oral 2.5 mg, daily Metoprolol Tartrate Oral 100 mg, 2 x daily Milk of Magnesia Oral 30 ml NovoLOG Subcutaneous NovoLOG Subcutaneous Nystatin External ([id number] unit/gm), q 8 hours Potassium Chloride Oral, unknown dose Senna Oral The source(s) of the original Home Medication information: patient The following Medications were given to the patient in the Emergency Department: IV NS IV Fluids bolus 0, then 1000 mL/hr, administered: 07/07/2016 3:44:00 PM Albuterol [Neb Tx] Neb TX 1 unit dose, administered: 07/07/2016 6:58:00 PM Lasix [IVP] IVP 20 mg, administered: 07/07/2016 7:52:00 PM The following Medications were prescribed to the patient: None.
== END 2016-07-09 10:36 | disposition home or self-care (01) | DRG 699 ==
LOC: ED SRH 15:10 → TRANS SRH 18:13 → ACUTE2 SRH 20:10
PROVIDERS: ADMIT Student in an Organized Health Care Education/Training Program
DX: N28.9 Disorder of kidney and ureter, unspecified (principal); E87.5 Hyperkalemia; E86.0 Dehydration; R42 Dizziness and giddiness; Z91.81 History of falling; I89.0 Lymphedema, not elsewhere classified; B37.2 Candidiasis of skin and nail; E66.01 Morbid (severe) obesity due to excess calories; Z68.43 Body mass index [BMI] 50.0-59.9, adult; E11.22 Type 2 diabetes mellitus with diabetic chronic kidney disease; I12.9 Hypertensive chronic kidney disease with stage 1 through stage 4 chronic kidney disease, or unspecified chronic kidney disease; N18.9 Chronic kidney disease, unspecified; Z79.4 Long term (current) use of insulin
CPT/HCPCS: 85245; 90047; 90074; 90098; 90100; 92630; 92750; 94060; 95059

== ENCOUNTER 2016-09-16 11:50 | Observation (INO) | payer OTHER ==
[~2016-09-16] VITALS: Ht 177.8 cm; Wt 172.9 kg
--- NOTE | 2016-09-16 12:57 | DIAGNOSTIC IMAGING REPORT ---
PROCEDURE: XR CHEST 1 VIEW INDICATION: SOB TECHNIQUE: Portable AP view 12:34 p.m. COMPARISON: Chest 12/25/2015 FINDINGS: Cardiomegaly, pulmonary vascular congestion, and bilateral pleural effusions. IMPRESSION: 1. CHF
--- NOTE | 2016-09-16 13:36 | DIAGNOSTIC IMAGING REPORT ---
PROCEDURE: US VENOUS - BILATERAL EXT INDICATION: SWELLING AND SOB TECHNIQUE: Color Doppler duplex imaging of the deep and superficial venous system without and with compression. COMPARISON: None. FINDINGS: Bilateral calf veins not well visualized due to body habitus and edema. RIGHT LOWER EXTREMITY: Deep and superficial venous system of the right lower extremity is within normal limits. There is no evidence of deep vein thrombosis or superficial thrombophlebitis. LEFT LOWER EXTREMITY: Deep and superficial venous system of the left lower extremity is within normal limits. There is no evidence of deep vein thrombosis or superficial thrombophlebitis. IMPRESSION: 1. Negative venous ultrasound of the bilateral lower extremities. 2. Bilateral lower extremity subcutaneous edema.
--- NOTE | 2016-09-16 16:05 | ED CLINICAL REPORT ---
Clinical Report - Physicians/Mid Levels [facility] [address] [place] [address] 09/16/2016 11:51 Patient: GALINA MORRISON Time Seen: 1209. Arrived- By ambulance. Historian- patient. HISTORY OF PRESENT ILLNESS Chief Complaint: DYSPNEA. This started for the past 3 days and is still present and worsening. It was gradual in onset and has been constant and waxing/waning but is not gone now. The dyspnea is described as moderate and is worsened by exertion and is improved by rest. No fever, wheezing, chills or chest pain or discomfort. He has had foot swelling (chronic baseline bilateral). (reports she has not been compliant with his Lasix. Patient states that he does not like going to the bathroom so frequently.). Similar symptoms previously: Recent medical care: Not recently seen/assessed. REVIEW OF SYSTEMS All systems otherwise negative, except as recorded above. PAST HISTORY See nurses notes. Medications: Lantus. Coumadin Oral 7.5 mg, daily. HumaLOG Subcutaneous (ss before meals and at HS). Lasix Oral (Tablet 40 mg), 2x a day. Metoprolol Tartrate Oral 100 mg, 2 x daily. Allergies: No Known Drug Allergy. SOCIAL HISTORY Never smoker. No alcohol use or drug use. No recent travel. Is a local resident. lives at an assisted living facility. Patient is a retired special director of physical education. ADDITIONAL NOTES The nursing notes have been reviewed. PHYSICAL EXAM Vital Signs: 09/16/2016 11:55 BP: 152/82. HR: 55. RR: 22. O2 saturation: 93%. Temp: 98.3 F. Pain level now: 0/10. Oxygen saturation normal. Appearance: Alert. No acute distress. Eyes: Pupils equal, round and reactive to light. Eyes normal inspection. ENT: Ears normal. Nose normal. Pharynx normal. Uvula midline. Neck: Normal inspection. No jugular venous distention. Neck supple. CVS: Normal heart rate and rhythm. Heart sounds normal. Pulses normal. Respiratory: No respiratory distress. No wheezes or stridor. (crackles at the bases bilaterally.). Abdomen: Soft and nontender. No organomegaly. Skin: Skin warm and dry. Normal skin color. No rash. Normal skin turgor. (decubitus ulcer at the left buttocks. No signs of infection. No signs of forniersgangrene.). Extremities: Bilateral severe 4+ pitting edema of the lower extremities involving both lower legs. Extremities exhibit normal ROM. (no crepitus. No erythema). Neuro: Oriented X 3. No motor deficit. No sensory deficit. LABS, X-RAYS, AND EKG EKG: Atrial fibrillation (narrow-complex) (<100 bpm). Normal P waves. Normal HANNY. Normal QRS complex. Normal axis. Normal ST and T waves, QT and QTc. Rate controlled A. fib. The study has been interpreted contemporaneously. The study has been independently viewed by me. The EKG appears to be a good tracing. Chest X-ray: (PROCEDURE: XR CHEST 1 VIEW INDICATION: SOB TECHNIQUE: Portable AP view 12:34 p.m. COMPARISON: Chest 12/25/2015 FINDINGS: Cardiomegaly, pulmonary vascular congestion, and bilateral pleural effusions. IMPRESSION: 1. CHF). Views: AP (portable). The X-rays were independently viewed by me and interpreted by the radiologist. The X-rays were discussed with the radiologist (via pacs). Laboratory Tests: UA-Culture if indicated: (LISY: 09/16/2016 13:35) ( MsgRcvd 09/16/2016 14:07) Final results Test Result Flag Units (Reference) URINE COLOR YELLOW URINE APPEARANCE CLEAR URINE GLUCOSE NEGATIVE (NEGATIVE) URINE BILIRUBIN NEGATIVE (NEGATIVE) URINE KETONE NEGATIVE (NEGATIVE) URINE SPECIFIC GRAVITY 1.025 (1.010-1.030) URINE PH 6.0 (5.0-8.0) URINE PROTEIN 1+ (NEGATIVE) URINE UROBILINOGEN 0.2 EU/dL (0.2-1.0) URINE NITRITE NEGATIVE (NEGATIVE) URINE BLOOD 1+ (NEGATIVE) URINE LEUK ESTERASE NEGATIVE (NEGATIVE) URINE RBC 1-3 rbc/hpf (0-1) URINE WBC 0-1 wbc/hpf (0-1) URINE EPITHELIAL CELLS 0-1 EPI/hpf (0-5) URINE BACTERIA NONE SEEN (NONE SEEN) URINE COMMENT CULT NOT INDICATED URINE CULTURES ARE SET-UP BASED ON THE FOLLOWING CRITERIA:POSITIVE NITRITEPOSITIVE LEUKOCYTE ESTERASEGREATER THAN 10 WHITE BLOOD CELLSMODERATE (2+) OR GREATER BACTERIA CBC w Diff: (LISY: 09/16/2016 12:27) ( [facility] Final results Test Result Flag Units (Reference) WHITE BLOOD COUNT 6.0 K/uL (4.5-11.5) RED BLOOD COUNT 4.75 M/uL (4.50-5.90) HEMOGLOBIN 14.2 gm/dL (13.5-17.5) HEMATOCRIT 43.4 % (41.0-53.0) MEAN CELL VOLUME 92 fL (80-100) MEAN CORPUSCULAR HGB 30 pg (26-34) MEAN CORPUSCULAR HGB CONC 33 g/dL (31-37) RED CELL DISTRIBUTION WIDTH 13.1 % (11.6-14.8) PLATELET COUNT 283 K/uL (150-400) NEUTROPHIL % 72.1 % (50-75) LYMPH % 16.8 L % (25-40) MONO % 7.9 % (3-14) EOSINOPHIL % 2.8 % (0-4) BASOPHIL % 0.4 % (0-2) PT with INR: (LISY: 09/16/2016 14:03) ( [facility] 14[facility]52) Final results Test Result Flag Units (Reference) INR 3.8 H (0.8-1.2) Low Intensity Therapy: INR 1.5-2.0 PT range 18.5-23.1Mod.Intensity Therapy: INR 2.0-3.0 PT range 23.1-31.5High Intensity Therapy: INR 2.5-3.5 PT range 27.4-35.5High Intensity Therapy 2: INR 3.0-4.0 PT range 31.5-39.3 D-DIMER QUANTITATIVE 0.66 H ug/mLFEU (0.27-0.52) The primary value of this quantitative assay relates toits negative predictive value (i.e. exclusion) of pulmonaryembolism/deep vein thrombosis/DIC.Elevated levels of d-dimer may also occur with:, age, cancer, inflammation, liver disease,post-op, infection, hematoma, coronary disease, peripheralarteriopathy, bleeding disorders and thrombolytic treatment.Results should be correlated with other clinical andradiological data.Testing Methodology: Latex Immunoassay BNP: (LISY: 09/16/2016 12:27) ( MsgRcvd 09/16/2016 13:40) Final results Test Result Flag Units (Reference) B-TYPE NATRIURETIC PEPTIDE 615 H pg/ml (5-100) CMP: (LISY: 09/16/2016 14:03) ( MsgRcvd 09/16/2016 15:42) Final results Test Result Flag Units (Reference) GLUCOSE 76 mg/dL (70-110) BUN 22 H mg/dL (7-18) CREATININE 1.9 H mg/dL (0.6-1.3) Estimated GFR 37.43 mL/min Estimated GFR- 45.37 mL/min Note: Persistent reduction over 3 months in eGFR<60 mL/min/1.73 m2 defines CKD. Patients with eGFR values>=60 mL/min/1.73 m2 may also have CKD if evidence ofpersistent proteinuria. Additional information may be foundat www.kidney.org. SODIUM 145 mmol/L (136-145) POTASSIUM 4.2 mmol/L (3.5-5.1) CHLORIDE 108 H mmol/L (98-107) CARBON DIOXIDE 31 mmol/L (21-32) CALCIUM 8.6 mg/dL (8.5-10.1) TOTAL PROTEIN 7.4 g/dL (6.4-8.2) ALBUMIN 3.0 L g/dL (3.3-5.0) BILIRUBIN, TOTAL 0.5 mg/dL (0.0-1.0) ALKALINE PHOSPHATASE 103 U/L (46-116) AST (SGOT) 17 U/L (15-37) ALT (SGPT) 20 U/L (12-78) TROPONIN I <0.05 ng/mL (0.00-1.5) TROPONIN REFERENCE RANGE:<0.1 NEGATIVE0.1-1.5 INDETERMINANT>1.5 POSITIVE THYROID STIMULATING HORMONE 3.376 uIU/mL (0.30-3.74) . PROGRESS AND PROCEDURES Course of Care: the patient is a pleasant 71-year-old male presented for evaluation of shortness of breath. Because of the patient's swelling of the lower examination and crackles noted at the bases, CHF exacerbation likely. we'll evaluate for other causes for the patient to have a CHF exacerbation including acute myocardial infarction, pneumonia, or other etiologies such as aatrial fibrillation or triggers. The patient to be in atrial fibrillation. Wall in the examination room, the patient was noted to have a heart rate of 130. Metoprolol was ordered for rate control. Patient is a known chronic A. fib. Patient is on anticoagulation. PT has been ordered. Patient's tachycardia had significantly improved shortly after leaving the room. We will hold the metoprolol at this time. Patient was also noted to be slightly hypotensive while here in the emergency department. Laboratory studies indicate CHF however because of the hypotension, would be hesitant with providing the patient Lasix and nitroglycerin. We'll monitor closely. Patient has made several requests here in the emergency department for food and drink. Had a discussion with the patient in regards to his reasons for the shortness of breath and my concerns for his health. Because of these and safety issues, had requested patient to be mindful of his diet at this time. Once the patient is able to tolerate treatment for the CHF and his blood pressures improved, we'll consider providing the patient a cardiac diet. Fluid was ordered from the cafeteria. patient's blood pressure had significant improvement here in the emergency department. Because of this, patient be given Lasix. Would also talking to the patient's primary care doctor who will be the admitting physician. Patient be admitted for CHF exacerbation as well as chronic A. fib and further monitoring for the shortness of breath. No further recommendations made. No other signs of abnormalities noted on patient's workup except for elevated d-dimer and which a VQ scan has been ordered. These tests are pending and the accepting physician will follow-up with the rest of these tests. Discussed with patient his work appearing emergency department including diagnosis, plan of care, and workup. All questions have been answered. The patient expressed understanding of these instructions and was agreeable to them. Patient is also made several requests while here in the emergency department. We have complied with these requests. Patient is requesting food and beverage which have been ordered. Patient is also requesting a reclining chair. This is also been requested through the live in housekeeper nanny. Critical care performed (45 minutes). Time is exclusive of separately billable procedures. Time includes: direct patient care, patient reassessment, coordination of patient care, interpretation of data (laboratory data and chest xrays), review of patient's medical records, medical consultation and documentation of patient care. Disposition: Observation in Acute Care. CLINICAL IMPRESSION CHF exacerbation chronic atrial fibrillation, rate controlled bilateral lower extremity edema. (Electronically signed by Alex Alex Dr. 09/17/2016 12:48)
--- NOTE | 2016-09-16 16:05 | ED ORDER SUMMARY ---
..... Patient: GALINA MORRISON OrderSheet [facility] VisitID: [id number] [address] [place], [place] [id number] 71y, M Registration Date/Time: 09/16/2016 ORDER SHEET Weight: 174.6 kg (stated) Allergies: No Known Drug Allergy GENERAL ORDERS: Chest 1V Urgent (12:09/16/2016 Sarah Marques) (Ack 12:23 KHoerner) (12:29 KHoerner) Template Layout Worker (Continuous) (SOB) (12:09/16/2016 Sarah Marques) (12:29 KHoerner) CBC w Diff Urgent (12:09/16/2016 Sarah Marques) (Ack 12:23 KHoerner) (12:29 KHoerner) CMP Urgent (12:09/16/2016 Sarah Marques) (Ack 12:23 RICARDOoerner) (12:29 KHoerner) PT with INR Urgent (12:09/16/2016 Sarah Marques) (Ack 12:23 KHoerner) (12:29 KHoerner) UA-Culture if indicated Urgent (12:09/16/2016 Sarah Marques) (Ack 12:23 RICARDOoerner) (14:00 Jewell R.N.) D-Dimer Urgent (12:09/16/2016 Sarah Marques) (Ack 12:23 Ajrner) (12:29 KHoerner) Troponin-I Urgent (12:09/16/2016 Sarah Marques) (Ack 12:23 RICARDOoerner) (12:29 KHoerner) Pulse oximeter (12:09/16/2016 Sarah Marques) (12:29 KHoerner) EKG - ER Stat (12:09/16/2016 Sarah Marques) (Ack 12:23 KHoerner) (12:29 KHoerner) US Venous Bilat Urgent (12:09/16/2016 Sarah Marques) (Ack 12:23 Yesika) (13:09 KHoerner) BNP Urgent (13:13 09/16/2016 Sarah Marques) (Ack 13:15 Yesika) (13:16 Yesika) TSH Urgent (13:14 09/16/2016 Sarah Marques) (Ack 13:16 RICARDOoermoncho) (13:16 Yesika) VQ Scan Urgent (16:06 09/16/2016 Sarah Marques) (Ack 16:09 Yesika) (18:16 JAVONook R.N.) MEDICATION ORDERS: IV FLUIDS: Metoprolol IV 5 mg (HIGH ALERT MEDICATION, NOW) (12:13 09/16/2016 Sarah Marques) (Ack 12:15 SStone R.N.) (Cancelled: Verbal per [id number] Altaf R.N.) IV Saline Lock (12:13 09/16/2016 Sarah Marques) (Ack 12:15 SStone R.N.) (14:12 Jennifer R.N.) Lasix IV 20 mg (NOW) (17:43 09/16/2016 Sarah Marques) (18:16 MCook R.N.) ORDER SHEET NOTES: [Electronically signed by Alex Alex Dr. (12:48 09/17/2016)] [Electronically signed by Jose A Cunningham R.N. (15:17 09/17/2016)] [Electronically locked/signed by Jose A Cunningham R.N. (15:17 09/17/2016)]
--- NOTE | 2016-09-16 16:05 | ED ORDER SUMMARY ---
..... Patient: GALINA MORRISON OrderSheet [facility] VisitID: [id number] [address] [place], [place] [id number] 71y, M Registration Date/Time: 09/16/2016 ORDER SHEET Weight: 174.6 kg (stated) Allergies: No Known Drug Allergy GENERAL ORDERS: Chest 1V Urgent (12:09/16/2016 Sarah Marques) (Ack 12:23 KHoerner) (12:29 KHoerner) Heel Gummer (Continuous) (SOB) (12:09/16/2016 Sarah Marques) (12:29 KHoerner) CBC w Diff Urgent (12:09/16/2016 Sarah Marques) (Ack 12:23 KHoerner) (12:29 KHoerner) CMP Urgent (12:09/16/2016 Sarah Marques) (Ack 12:23 RICARDOoerner) (12:29 KHoerner) PT with INR Urgent (12:09/16/2016 Sarah Marques) (Ack 12:23 KHoerner) (12:29 KHoerner) UA-Culture if indicated Urgent (12:09/16/2016 Sarah Marques) (Ack 12:23 RICARDOoerner) (14:00 Jewell R.N.) D-Dimer Urgent (12:09/16/2016 Sarah Marques) (Ack 12:23 Ajrner) (12:29 KHoerner) Troponin-I Urgent (12:09/16/2016 Sarah Marques) (Ack 12:23 RICARDOoerner) (12:29 KHoerner) Pulse oximeter (12:09/16/2016 Sarah Marques) (12:29 KHoerner) EKG - ER Stat (12:09/16/2016 Sarah Marques) (Ack 12:23 KHoerner) (12:29 KHoerner) US Venous Bilat Urgent (12:09/16/2016 Sarah Marques) (Ack 12:23 Yesika) (13:09 KHoerner) BNP Urgent (13:13 09/16/2016 Sarah Marques) (Ack 13:15 Yesika) (13:16 Yesika) TSH Urgent (13:14 09/16/2016 Sarah Marques) (Ack 13:16 RICARDOoermoncho) (13:16 Yesiak) VQ Scan Urgent (16:06 09/16/2016 Sarah Marques) (Ack 16:09 Yesika) (18:16 JAVONook R.N.) MEDICATION ORDERS: IV FLUIDS: Metoprolol IV 5 mg (HIGH ALERT MEDICATION, NOW) (12:13 09/16/2016 Sarah Marques) (Ack 12:15 SStone R.N.) (Cancelled: Verbal per [id number] Altaf R.N.) IV Saline Lock (12:13 09/16/2016 Sarah Marques) (Ack 12:15 SStone R.N.) (14:12 Jennifer R.N.) Lasix IV 20 mg (NOW) (17:43 09/16/2016 Sarah Marques) (18:16 MCook R.N.) ORDER SHEET NOTES: [Electronically signed by Alex Alex Dr. (12:48 09/17/2016)] [Electronically signed by Jose A Cunningham R.N. (15:17 09/17/2016)] [Electronically locked/signed by Jose A Cunningham R.N. (15:17 09/17/2016)]
--- NOTE | 2016-09-16 16:05 | ED NURSING NOTES ---
Clinical Report - Nurses [facility] [place] [address] 09/16/2016 11:51 Patient: GALINA MORRISON TRIAGE Triage time 11:55. Acuity: LEVEL 3. Chief Complaint: SHORTNESS OF BREATH and DIFFICULTY BREATHING. --12:12 Shilpa Gallegos R.N. 11:55 09/16/16. BP: 152/82. HR: 55. RR: 22. O2 saturation: 93%. Temp: 98.3 F. Pain level now: 010. --12:12 Shilpa Gallegos R.N. Weight: 174.6 kg stated. Height/Length: 70 inches Per Patient. BMI: 55.2. --12:06 Shilpa Gallegos R.N. Medications Coumadin Oral 7.5 mg, daily. HumaLOG Subcutaneous (ss before meals and at HS). Lasix Oral (Tablet 40 mg), 2x a day. Metoprolol Tartrate Oral 100 mg, 2 x daily. --12:09 Shilpa Gallegos R.N. Lantus. --12:09 Shilpa Gallegos R.N. Allergies No Known Drug Allergy. --12:07 Shilpa Gallegos R.N. History Arrived by EMS, and (A46). Historian: patient. Onset. (3 days ago). ( unable to finish a sentence due to SOB. Inability to "catch his breath"). He has had a cough (last week). He has had wheezing (end expiratory). ( Pt. reports he has not been taking his Lasix as prescribed. light-headed "recently" , tires easily). PAST MEDICAL HX: Congestive heart failure. Immunizations: up-to-date. ( PNA , atrial fibrillation, essential hypertension, aortic stenosis, type II diabetes, CHF hyperlipidemia). SURGERY HX: ( eye surgery x 3). SOCIAL HX: Never smoker. No alcohol use or drug use. No infectious disease exposure. --12:12 Shilpa Gallegos R.N. Interventions ID band on patient. To treatment room. --12:12 Shilpa Gallegos R.N. PHYSICAL ASSESSMENT GENERAL / NEURO / PSYCH: Alert. Oriented X 4. Appears in no acute distress. RESPIRATORY: Mild respiratory distress. The patient can speak a few words at a time. Crackles present in the bases bilaterally. CVS: Cardiac rhythm: atrial fibrillation. SKIN: Skin is warm and dry. ( bilateral LE lymphedema. pt. reports he usually wears compression socks, though not on at this time. By pt. report pressure ulcers on buttocks. Not examined at this time per patient request. Multiple lesions on bilateral LEs in stages of healing. Large bruise on right lower abdomen.). --12:14 Shilpa Gallegos R.N. NURSING PROGRESS NOTES Oxygen administered by nasal cannula at 2.5 liters. dip stand loader, pulse oximeter and NIBP monitor placed on patient. Patient gowned. Head of bed elevated. Patient identifiers checked. Call light placed in reach. Side rails up x 2. --12:15 Shilpa Gallegos R.N. 12:29 09/16/16. EKG time: (1230). EKG was performed by a jevon and shown to the ED physician. --12:29 Sandra Seaman 14:12 09/16/2016 Site #1 started via IV in the right forearm with an 22g angiocath, with aseptic technique and good blood return; one attempt. Saline lock flushed with 10 mL saline. --14:12 Margy Myers R.N. 14:19 Metoprolol held for BP of 97. --14:22 Margy Myers R.N. 14:00 09/16/16. BP: 97/55. HR: 88. O2 saturation: 99%. --14:25 Shilpa Gallegos R.N. 14:26 09/16/16. BP: 138/104. HR: 95. RR: 24. O2 saturation: 93%. --14:43 Shilpa Gallegos R.N. ( assisted pt. back to bed. Refused ceiling lift. Asking for food.). --14:44 Shilpa Gallegos R.N. ( report to ZEKE Naranjo for end of shift coverage.). --14:58 Shilpa Gallegos R.N. 15:02 09/16/16. BP: 127/74. HR: 95. RR: 20. --15:03 Jose A Cunningham R.N. ( Pt awake in room, introduced self, checked VS, Pt asking for food.). --15:03 Jose A Cunningham R.N. 15:56 09/16/16. O2 saturation: 95% on room air. --15:57 Jose A Cunningham R.N. ( Pt in room, informed him about arrival time of his tray as he is asking about food once again, VSS.). --15:57 Jose A Cunningham R.N. ( Pt sitting up in wheelchair, Dr Almazan at bedside but Pt is Dr. Ratliff is Pt's PCP. Pt to have VQ scan but contrast medication will not be available until 1999 this evening. ER MD aware.). --16:29 Jose A Cunningham R.N. 16:46 09/16/16. BP: 151/67. HR: 108. RR: 20. O2 saturation: 96% on room air. --16:50 Jose A Cunningham R.N. ( Pt sitting in chair, tray brought to bedside, checked Pt's BG, call placed to shift sup regarding Pt's preference for a recliner and "more comfortable bed". She is aware, working on both options for Pt. Pt also allowed me to look at his "rash" on his buttocks. Pt has a stage II ulcer on his L ischium and a stage I on his R ischium. Pt would not allow me to photograph or dress his wounds at this time but he did allow me to cleanse them. His undergarment is soiled with stool and blood but he would not allow me to remove it.). --16:50 Jose A Cunningham R.N. Finger stick glucose: 64 mg/dL; performed by nurse. Wound cleansed with sterile saline. --16:50 Jose A Cunningham R.N. ( Pt sitting on end of bed, Dr. Soto in to see Pt. Will transport Pt upstairs once MD is finished talking with Pt.). --17:46 Jose A Cunningham R.N. 18:02 09/16/2016 Site #[address] upon admission. Flushed with 10 mL saline. --18:17 Jose A Cunningham R.N. 18:06 09/16/2016 Lasix IVP 20 mg given over 2 minute(s) via site #1. Allergies verified and confirmed 5 rights. IV patency established. IV site checked: no pain, redness, or swelling. IV flushed thoroughly pre- and post-medication administration. IVP given by RN. --18:16 Jose A Cunningham R.N. DISPOSITION / DISCHARGE 17:39 09/16/16. BP: 134/82. HR: 119. RR: 18. O2 saturation: 95% on room air. Temp: 97.8 F. --17:40 Jose A Cunningham R.N. Report was given to a nurse in person. Report included patient's care, treatment, medications, reviewed medication reconcilliation, and condition (including any recent changes or anticipated changes). All questions were answered. Care was transferred. (ZEKE Johnson ). --17:41 Jose A Cunningham R.N. late entry - 18:. Departure time: 18:Sep 16 2016. Admitted to Acute Care. ( Pt left in stable condition, transported via , paperwork in hand and belongings sent with Pt. Facility Tech accompanied Pt upstairs.). --18:17 Jose A Cunningham R.N. Locked/Released at 09/17/2016 15:17 by Jose A Cunningham R.N.
--- NOTE | 2016-09-16 18:02 | Progress Note ---
Subjective General 71 yo male stopped his lasix as peeing too much now here with acute CHF. Has minimal elevation in D Dimer and VQ pending. Has DM, CRI, afib,obesity, lymphedema. Admit: lasix, monitor labs, VQ scan
[2016-09-16 18:43] VITALS: BP 133/90
--- NOTE | 2016-09-16 22:01 | DIAGNOSTIC IMAGING REPORT ---
PROCEDURE: NM PULMONARY PERFUSION W/VENT INDICATION: ELEVATED D-DIMER AND SHORTNESS OF BREATH TECHNIQUE: 47 mCi of technetium-99m DTPA was aerosolized and inhaled. 6 mCi technetium-99m MAA was injected intravenously. Ventilation and perfusion images were obtained in the AP, PA, right lateral, left lateral, PETERSON, MALAY, RPO and LPO positions. COMPARISON: Chest x-ray 09/16/2016. FINDINGS: Positioning the patient affected by the patient by patient's body habitus. However, there are no mismatched defects. Blunting of the costophrenic angles posteriorly consistent with pleural effusions. Cardiomegaly. IMPRESSION: 1. No evidence of pulmonary emboli 2. Results discussed with Dr. Soto.
--- NOTE | 2016-09-16 22:01 | DIAGNOSTIC IMAGING REPORT ---
PROCEDURE: NM PULMONARY PERFUSION W/VENT INDICATION: ELEVATED D-DIMER AND SHORTNESS OF BREATH TECHNIQUE: 47 mCi of technetium-99m DTPA was aerosolized and inhaled. 6 mCi technetium-99m MAA was injected intravenously. Ventilation and perfusion images were obtained in the AP, PA, right lateral, left lateral, PETERSON, MONGOLIAN, RPO and LPO positions. COMPARISON: Chest x-ray 09/16/2016. FINDINGS: Positioning the patient affected by the patient by patient's body habitus. However, there are no mismatched defects. Blunting of the costophrenic angles posteriorly consistent with pleural effusions. Cardiomegaly. IMPRESSION: 1. No evidence of pulmonary emboli 2. Results discussed with Dr. Soto.
--- NOTE | 2016-09-16 22:51 | HISTORY AND PHYSICAL ---
ADMITTED: 09/16/2016 CHIEF COMPLAINT: 1. Shortness of breath HISTORY OF PRESENT ILLNESS: The patient is a 71-year-old male who is a patient who lives at [facility]. He started having increasing shortness of breath over the last few days. By report, he stopped taking his Lasix a few days ago because he had felt like he was spending too much time in the bathroom. He started having increasing leg swelling and shortness of breath and was brought into the emergency department for evaluation on his shortness of breath. HIS CODE STATUS IS FULL CODE. MEDICAL/SURGICAL HISTORY: Past medical history: He has had atrial fibrillation, Coumadin therapy, lymphedema, morbid obesity, renal insufficiency, diabetes, some sleep issues, and congestive heart failure. Past surgical history: He has had cataract surgery and retinal surgery, colonoscopy done a few years ago. MEDICATIONS: 1. Lovastatin 20 mg p.o. daily. 2. Coumadin 7.5 mg p.o. daily. 3. NovoLog sliding scale insulin. 4. Multivitamin 1 p.o. daily. 5. Metoprolol 100 mg 2 tablets b.i.d. 6. Furosemide 40 mg p.o. b.i.d. 7. Lantus 32 units once daily. 8. He had some Abdullah's butt cream that he applies for yeast and buttock sores. ALLERGIES: 1. TO MEDICATIONS: NONE KNOWN. SOCIAL HISTORY: He is single, retired health education specialist, Sikhism. He lives at [facility]. He is a nonsmoker. He does not drink and he does not use any drugs. He occasionally drinks caffeinated beverages. FAMILY HISTORY: Mom at age 86 of heart disease and rheumatic fever. Father at age 55 of emphysema and lung cancer. REVIEW OF SYSTEMS: He denies fevers. He denies chest pain. He denies black or bloody stools. He has chronic leg swelling. He also has an ulceration on his buttocks. He has severe obesity. PHYSICAL EXAMINATION: GENERAL: The patient is an alert male who is talking in full sentences, sitting up in the emergency department moving easily from gurney to a chair. HEENT: Extraocular movements are intact. Pupils equal, round, and reactive to light. Oropharynx is clear with moist mucous membranes VITAL SIGNS: Temperature 98.1, heart rate of 57, respirations 18, blood pressure 133/90, saturating 96% on room air. NECK: Supple without lymphadenopathy. LUNGS: Occasional crackles bilaterally. HEART: Irregularly irregular heart rate. ABDOMEN: Severely obese, very large pannus. It is soft. It is nontender. GENITOURINARY: Exam is deferred. RECTAL: Exam is deferred. EXTREMITIES: Legs have 3+ edema and lymphedema of his lower extremities bilaterally. There is dry skin and some sores on his lower extremities. He does not have any active cellulitis. He is also by history with 2 small sores at his buttock, that is being followed by Wound Care. NEUROLOGIC: He is alert. He is oriented x3. His cranial nerves II through XII intact. Strength and sensation are grossly intact. LAB/IMAGING: White count of 6.0, hematocrit is 43.4, platelets of 283. INR of 3.8. Sodium of 145, potassium 4.2, chloride of 108, pCO2 31, BUN of 22, creatinine of 1.9, glucose of 76, calcium 8.6. Bilirubin 0.5, AST of 17, ALT of 20, alkaline phosphatase of 103. Troponin I less than 0.5, total protein of 7.4, albumin 3.0, and TSH of 3.376. Urinalysis shows 1+ protein, 1+ blood, negative leukocyte esterase, negative nitrite. Chest x-ray shows congestive heart failure. Venous Dopplers show negative venous ultrasound of bilateral lower extremities, bilateral lower subcutaneous edema. IMPRESSION: 1. Congestive heart failure, acute, likely related to the fact that he has been noncompliant with his diuretics as he feels like he then has to urinate too much. 2. Massively swollen legs with lymphedema bilaterally. 3. Severe morbid obesity. 4. Atrial fibrillation, currently on Coumadin, as well as large doses of beta blockers. 5. Diabetes. 6. CODE STATUS: FULL. PLAN: 1. Admit to the hospital. 2. Restart on Lasix. 3. Follow labs. 4. Home medications. 5. Ventilation-perfusion scan pending. 6. Telemetry for monitoring heartbeat with his FULL CODE status.
[2016-09-16 23:04] VITALS: BP 155/87
[2016-09-17 03:05] VITALS: BP 158/88
[2016-09-17 06:43] VITALS: BP 147/77
--- NOTE | 2016-09-17 07:48 | Progress Note ---
Subjective General Patient is here for follow up has been doing a little better, a little less SOB. No cp, no fevers. Sores on the leg ok Physical Exam Vital Signs / I&Os Vital Signs Date Time Temp Pulse Resp B/P Pulse O2 O2 Flow FiO2 Ox Delivery Rate 09/17 0643 97.7 102 21 147/77 96 Room Air 09/17 0305 98.4 94 18 158/88 96 Room Air 09/17 0137 Room Air 09/16 2304 98.6 66 18 155/87 97 Room Air 09/16 1843 98.1 57 18 133/90 96 Room Air I&O 09/17 0000 09/16 1600 09/16 0800 Intake Total 0 Output Total 150 Balance -150 General Appearance Alert, Cooperative Lungs Clear to auscultation, Normal air movement Cardiovascular irregular irregular HR Extremities 2 + edema on the bilateral lower ext with l sore mild superficial no cellulitis Neurological Normal exam LAB Results Laboratory Tests 09/17 09/17 09/16 0530 0530 1403 Chemistry Plasma Sodium (136 - 145 mmol/L) 149 145 Plasma Potassium (3.5 - 5.1 mmol/L) 3.8 4.2 Plasma Chloride (98 - 107 mmol/L) 110 108 CO2 (Enzymatic) (21 - 32 mmol/L) 32 31 BUN (7 - 18 mg/dL) 26 22 Creatinine (0.6 - 1.3 mg/dL) 1.9 1.9 Est GFR ( Amer) (mL/min) 45.37 45.37 Est GFR (Non-Af Amer) (mL/min) 37.43 37.43 Glucose (70 - 110 mg/dL) 71 76 Plasma Calcium (8.5 - 10.1 mg/dL) 8.3 8.6 Total Bilirubin (0.0 - 1.0 mg/dL) 0.5 AST (15 - 37 U/L) 17 ALT (12 - 78 U/L) 20 Alkaline Phosphatase (46 - 116 U/L) 103 Troponin (0.00 - 1.5 ng/mL) <0.05 B-Natriuretic Peptide (5 - 100 pg/ml) 807 Total Protein (6.4 - 8.2 g/dL) 7.4 Albumin (3.3 - 5.0 g/dL) 3.0 TSH 3rd Generation (0.30 - 3.74 uIU/mL) 3.376 Coagulation INR (0.8 - 1.2) 4.2 3.8 D-Dimer, Quantitative (0.27 - 0.52 ug/mLFEU) 0.66 Hematology WBC (4.5 - 11.5 K/uL) 6.2 RBC (4.50 - 5.90 M/uL) 4.60 Hgb (13.5 - 17.5 gm/dL) 13.7 Hct (41.0 - 53.0 %) 42.1 MCV (80 - 100 fL) 91 MCH (26 - 34 pg) 30 RDW (11.6 - 14.8 %) 13.1 Neut % (Auto) (50 - 75 %) 62.8 Lymph % (Auto) (25 - 40 %) 21.9 Dougherty % (Auto) (3 - 14 %) 11.4 Eos % (Auto) (0 - 4 %) 3.4 Baso % (Auto) (0 - 2 %) 0.5 Plt Count, EDTA (150 - 400 K/uL) 237 PUBS MCHC (31 - 37 g/dL) 33 09/16 0509/16 1335 1314 1227 Chemistry B-Natriuretic Peptide (5 - 100 pg/ml) 615 TSH 3rd Generation Cancelled Hematology WBC (4.5 - 11.5 K/uL) 6.0 RBC (4.50 - 5.90 M/uL) 4.75 Hgb (13.5 - 17.5 gm/dL) 14.2 Hct (41.0 - 53.0 %) 43.4 MCV (80 - 100 fL) 92 MCH (26 - 34 pg) 30 RDW (11.6 - 14.8 %) 13.1 Neut % (Auto) (50 - 75 %) 72.1 Lymph % (Auto) (25 - 40 %) 16.8 Dougherty % (Auto) (3 - 14 %) 7.9 Eos % (Auto) (0 - 4 %) 2.8 Baso % (Auto) (0 - 2 %) 0.4 Plt Count, EDTA (150 - 400 K/uL) 283 PUBS MCHC (31 - 37 g/dL) 33 Urines Urine Color YELLOW Urine Appearance CLEAR Urine pH (5.0 - 8.0) 6.0 Ur Specific Scuddy (1.010 - 1.030) 1.025 Urine Protein (NEGATIVE) 1+ Urine Ketones (NEGATIVE) NEGATIVE Urine Blood (NEGATIVE) 1+ Urine Nitrite (NEGATIVE) NEGATIVE Urine Bilirubin (NEGATIVE) NEGATIVE Urine Urobilinogen (0.2 - 1.0 EU/dL) 0.2 Ur Leukocyte Esterase (NEGATIVE) NEGATIVE Urine RBC (0 - 1 rbc/hpf) 1-3 Urine WBC (0 - 1 wbc/hpf) 0-1 Ur Epithelial Cells (0 - 5 EPI/hpf) 0-1 Urine Bacteria (NONE SEEN) NONE SEEN Urine Glucose (NEGATIVE) NEGATIVE Urine Comment CULT NOT INDICATED Imaging VQ scan shows no PE Assessment and Plan Problem List 1. Acute CHF (congestive heart failure) Plan Has CHF that is from not taking pills as "peeing all the time." Will check on echo. 2. Morbid obesity Status Chronic Onset Date Unknown Plan Has DM and obesity 3. Decubitus ulcer, buttock Plan Wound care eval and likely needs assist at d/c 4. Chronic kidney disease Plan Has CKD and will have patient try new diuretics and see if he is able to tolerate. 5. Atrial fibrillation Plan INR too high and hold on coumadin at this time.
[2016-09-17 10:28] VITALS: BP 128/98
[2016-09-17 14:28] VITALS: BP 140/93
--- NOTE | 2016-09-17 15:17 | ED MED RECONCILIATION SUMMARY ---
Patient: GALINA MORRISON Medication Reconciliation Report [facility] VisitID: [id number] [address] [place] [address] 71y, M Registration Date/Time: 09/16/2016 Weight: 174.6 kg Height/Length: 70 in. BMI: 55.2 ALLERGIES: No Known Drug Allergy The patient's Home Medications are listed below: THE FOLLOWING MEDICATIONS NEED TO BE RECONCILED: Coumadin Oral 7.5 mg, daily HumaLOG Subcutaneous, ss before meals and at HS Lantus Lasix Oral (40 mg), 2x a day Metoprolol Tartrate Oral 100 mg, 2 x daily The source(s) of the original Home Medication information: Not obtained. The following Medications were given to the patient in the Emergency Department: Lasix [IVP] IVP 20 mg, administered: 09/16/2016 6:06:00 PM The following Medications were prescribed to the patient: None.
--- NOTE | 2016-09-17 15:17 | ED MAR SUMMARY ---
..... Medication Administration Record [address] [place] [address] Patient: GALINA MORRISON Visit ID: [id number] 71y, M Weight: 174.6 kg Height/Length: 70 in BMI: 55.2 ALLERGIES: No Known Drug Allergy Given 18:06 09/16/2016 Jose A Cunningham R.N. Medication Administered: LASIX [IVP], Dose: 20 mg IVP over 2 minute(s), Site: #1. Medication Ordered: Lasix IV 20 mg (NOW).
--- NOTE | 2016-09-17 15:17 | ED DISCHARGE INSTRUCTIONS ---
Patient: GALINA MORRISON General Instructions [facility] VisitID: [id number] [address] [place] [address] 71y, M Registration Date/Time: 09/16/2016 CHF exacerbation chronic atrial fibrillation, rate controlled bilateral lower extremity edema. (Electronically signed by Alex Alex Dr. 09/17/2016 12:48)
--- NOTE | 2016-09-17 15:17 | ED MAR SUMMARY ---
..... Medication Administration Record [facility] [address] [place] [address] Patient: GALINA MORRISON Visit ID: [id number] 71y, M Weight: 174.6 kg Height/Length: 70 in BMI: 55.2 ALLERGIES: No Known Drug Allergy Given 18:06 09/16/2016 Jose A Cunningham R.N. Medication Administered: LASIX [IVP], Dose: 20 mg IVP over 2 minute(s), Site: #1. Medication Ordered: Lasix IV 20 mg (NOW).
--- NOTE | 2016-09-17 15:17 | ED MED RECONCILIATION SUMMARY ---
Patient: GALINA MORRISON Medication Reconciliation Report [facility] VisitID: [id number] [address] [place] [address] 71y, M Registration Date/Time: 09/16/2016 Weight: 174.6 kg Height/Length: 70 in. BMI: 55.2 ALLERGIES: No Known Drug Allergy The patient's Home Medications are listed below: THE FOLLOWING MEDICATIONS NEED TO BE RECONCILED: Coumadin Oral 7.5 mg, daily HumaLOG Subcutaneous, ss before meals and at HS Lantus Lasix Oral (40 mg), 2x a day Metoprolol Tartrate Oral 100 mg, 2 x daily The source(s) of the original Home Medication information: Not obtained. The following Medications were given to the patient in the Emergency Department: Lasix [IVP] IVP 20 mg, administered: 09/16/2016 6:06:00 PM The following Medications were prescribed to the patient: None.
--- NOTE | 2016-09-17 15:17 | ED DISCHARGE INSTRUCTIONS ---
Patient: GALINA MORRISON General Instructions [facility] VisitID: [id number] [address] [place] [address] 71y, M Registration Date/Time: 09/16/2016 CHF exacerbation chronic atrial fibrillation, rate controlled bilateral lower extremity edema. (Electronically signed by Alex Alex Dr. 09/17/2016 12:48)
[2016-09-17 19:00] VITALS: BP 126/63
[2016-09-17 22:34] VITALS: BP 122/76
--- NOTE | 2016-09-17 23:54 | DIAGNOSTIC IMAGING REPORT ---
REFERRING PHYSICIAN/PROVIDER: Dr. Soto CONSULTING OPERATIONS INTELLIGENCE SUPERINTENDENT: Marcelino Medina MD PROCEDURE: 2D echo, M-mode and complete color and flow Doppler interrogation TECHNICAL QUALITY: Technically difficult INDICATION: CHF INTERPRETATIONS: CHAMBERS: LEFT ATRIUM: Left atrial enlargement. LEFT VENTRICLE: Concentric left ventricular hypertrophy. Normal left ventricular size and low-normal systolic function, EF visually estimated to be 50-55%. Indeterminate diastolic function. RIGHT ATRIUM: Not seen well. RIGHT VENTRICLE: Not seen well. VALVES: All valves nonrheumatic unless otherwise indicated. AORTIC VALVE: Individual aortic valve leaflets not seen well. Aortic sclerosis. Mild aortic stenosis with peak velocity 2.7 m/s, mean gradient 16 mmHg. Mild aortic regurgitation. MITRAL VALVE: Mitral annular calcification. No mitral regurgitation. TRICUSPID VALVE: Trace tricuspid regurgitation. Unable to estimate pulmonary artery systolic pressure due to inadequate tricuspid regurgitation jet. PULMONIC VALVE: No pulmonic regurgitation. MISCELLANEOUS: Pericardium not seen. HEMODYNAMICS: IVC not seen well. IMPRESSION: 1. Technically difficult study. 2. Underlying rhythm is atrial fibrillation. 3. Concentric left ventricular hypertrophy with normal size and low-normal systolic function, EF visually estimated to be 50-55%. 4. Mild aortic stenosis with peak velocity 2.7 m/s, and mean gradient 16 mmHg. 5. Right heart not seen well.
[2016-09-18 01:59] VITALS: BP 146/74
--- NOTE | 2016-09-18 09:37 | Discharge Summary ---
Discharge Summary Report Admit Date 09/16/16 Discharge Date 09/18/16 Admission Diagnosis CHF acute exacerbation, decubitus ulcer, DM, HTN, Afib, Anti coagulation, severe obesity Discharge Diagnosis CHF acute exacerbation, abrasion no decub, DM, HTN, Afib, Anti coagulation, severe obesity Brief History Luly stopped his lasix as peeing too much then presented to the ER with acute CHF and sob. Hospital Course Changed diuretics some, held coumadin, PT /OT eval ? need for d/c services, d/c planning. General Appearance Alert, Oriented X3 HEENT Atraumatic, PERRLA Lungs Clear to auscultation, rare crackle at base of lungs Cardiovascular irregularly irregular Abdomen very large pannus Lab/Imaging Laboratory Tests 09/18 0508 Chemistry Plasma Sodium (136 - 145 mmol/L) 145 Plasma Potassium (3.5 - 5.1 mmol/L) 3.9 Plasma Chloride (98 - 107 mmol/L) 109 CO2 (Enzymatic) (21 - 32 mmol/L) 32 BUN (7 - 18 mg/dL) 26 Creatinine (0.6 - 1.3 mg/dL) 1.9 Est GFR ( Amer) (mL/min) 45.37 Est GFR (Non-Af Amer) (mL/min) 37.43 Glucose (70 - 110 mg/dL) 116 Plasma Calcium (8.5 - 10.1 mg/dL) 8.6 Total Bilirubin (0.0 - 1.0 mg/dL) 0.3 AST (15 - 37 U/L) 19 ALT (12 - 78 U/L) 20 Alkaline Phosphatase (46 - 116 U/L) 98 Total Protein (6.4 - 8.2 g/dL) 7.0 Albumin (3.3 - 5.0 g/dL) 2.7 Discharge Instructions/Meds Resume home meds other than change of lasix to a combo of spironolactone and torsemide. Also, hold coumadin over the weekend and restart at 7mg on Tuesday. F/u in clinic on .
[2016-09-18] MEDS ORDERED: [UNRECOGNIZED DRUG - OTHER] PO (09:41)
[2016-09-18] MEDS ORDERED: SPIRONOLACTONE25 MG PO (09:41)
[2016-09-18] MEDS ORDERED: WARFARIN SODIUM6 MG PO (09:42)
--- NOTE | 2016-09-18 09:45 | Provider's Discharge Care Plan ---
Problem, Goal, Plan Problem List 1. Acute CHF (congestive heart failure) Instructions: Follow up as directed ( needs appt) 2. Atrial fibrillation Instructions: resume coumadin at 6mg Tuesday 3. Chronic anticoagulation Instructions: Take meds as directed 4. Diabetes mellitus Instructions: Take meds as directed 5. Morbid obesity Instructions: Limit calories to 2000/d
[2016-09-18 10:35] VITALS: BP 140/85
== END 2016-09-18 11:50 | disposition home or self-care (01) ==
LOC: ED SRH 11:50 → TRANS SRH 16:10 → ACUTE2 SRH 16:10 → TRANS SRH 16:10 → ACUTE2 SRH 18:05
PROVIDERS: ADMIT Student in an Organized Health Care Education/Training Program
DX: I13.0 Hypertensive heart and chronic kidney disease with heart failure and stage 1 through stage 4 chronic kidney disease, or unspecified chronic kidney disease (principal); I50.9 Heart failure, unspecified; N18.9 Chronic kidney disease, unspecified; E11.22 Type 2 diabetes mellitus with diabetic chronic kidney disease; Z79.4 Long term (current) use of insulin; T50.1X6A Underdosing of loop [high-ceiling] diuretics, initial encounter; Z91.128 Patient's intentional underdosing of medication regimen for other reason; I48.2 Chronic atrial fibrillation; Z79.01 Long term (current) use of anticoagulants; L89.322 Pressure ulcer of left buttock, stage 2; L89.311 Pressure ulcer of right buttock, stage 1; I89.0 Lymphedema, not elsewhere classified; E66.01 Morbid (severe) obesity due to excess calories; Z68.43 Body mass index [BMI] 50.0-59.9, adult
CPT/HCPCS: 29230; 29251; 81021; 83756; 85244; 85245; 90004; 90047; 90074; 90098; 90100; 90616; 91320; 91556; 93140; 94060; 95059